=== PATIENT | male | born 1945 | race Caucasian/White ===

== ENCOUNTER 2016-11-26 09:04 | Outpatient (CLI) | payer MEDICARE, OTHER | END 2016-11-26 09:05 | disposition home or self-care (01) | DX: J44.9 Chronic obstructive pulmonary disease, unspecified (principal); J84.10 Pulmonary fibrosis, unspecified ==

== ENCOUNTER 2016-11-28 13:10 | Outpatient (CLI) | payer MEDICARE, OTHER ==
[2016-11-28] MEDS ORDERED: ALBUTEROL NEB 2.5 MG/3 ML INH ONE (13:24)
== END 2016-11-28 13:11 | disposition home or self-care (01) ==
LOC: RT 13:10
PROVIDERS: ATTEND Internal Medicine
DX: J44.9 Chronic obstructive pulmonary disease, unspecified (principal)
CPT/HCPCS: 94060; J7613

== ENCOUNTER 2018-02-27 19:15 | Emergency (ER) | payer MEDICARE, OTHER ==
--- NOTE | 2018-02-27 21:57 | CT Report ---
Procedure Date: 02/27/2018 Accession Number: [id number] / [id number] Procedure: CT - Head W/O CPT Code: FULL RESULT: EXAM: CT HEAD EXAM DATE: 02/27/2018 09:28 PM. CLINICAL HISTORY: Hx of stroke, headache, nausea and balance issues. COMPARISON: CT angiogram head 04/17/2016. TECHNIQUE: Multiaxial CT images were obtained from the foramen magnum to the vertex. Reformats: Sagittal and coronal. IV contrast: None. In accordance with CT protocol optimization, one or more of the following dose reduction techniques were utilized for this exam: automated exposure control, adjustment of mA and/or KV based on patient size, or use of iterative reconstructive technique. FINDINGS: Parenchyma: Large area of chronic cortical and subcortical encephalomalacia involving the majority of the right temporal lobe and a moderate portion of the inferolateral right parietal lobe. Small area of cortical encephalomalacia inferomedially in the right occipital lobe, as before. Patchy hypodensity in left greater than right periventricular white matter consistent with chronic small vessel ischemic change, as before. No new low or high density regions. No intra-axial mass effect. Robb-white differentiation otherwise is intact. Extraaxial Spaces: Normal for age. No subdural or epidural collections identified. Ventricles: Normal in size and position. Sinuses and Orbits: Imaged paranasal sinuses, orbits, and mastoids show no significant abnormality. Bones: No evidence of fracture or calvarial defect. Other: Mild calcification in bilateral cavernous internal carotid arteries and proximal intracranial bilateral vertebral arteries. IMPRESSION: 1. No intracranial hemorrhage or current CT evidence of acute CVA. 2. Right temporoparietal chronic infarct. Small chronic infarct inferior medial right occipital lobe. Left greater than right chronic small vessel ischemic change in the cerebral white matter. RADIA
--- NOTE | 2018-02-27 22:04 | ED Physician Documentation ---
PD HPI FOCAL NEURO - Stated complaint Stated Complaint: SENT BY DOC - Chief complaint Chief Complaint: Abd Pain - History obtained from History obtained from: Patient, Family - History of Present Illness Timing - onset: Today Timing - details: Gradual onset, Now resolved Severity of deficit: Mild Contributing factors: positive: Anticoagulated Similar symptoms before: Work up / diagnostics, Treatment Recently seen: Admitted - Additional information Additional information: Patient is a 72 year old male with a history of multiple strokes in the past who is presenting to the emergency department for feeling nauseated and off balance. Patient reports that he had a large stroke in 2004 and since then he has had multiple other strokes. Patient recently was discharged from a neighboring hospital and MRI there confirmed at least 5 prior strokes according to his family. Patient reports that he had an echo done and ultrasound of his neck but he did not know the results. patient states that in the past when he was going to have some type of stroke he would feel a little funny. Patient talked to his doctor today who told him to come to the ER for "imaging" Upon initial evaluation in the emergency department patient denies any acute complaints and has no focal neurological deficits. Review of Systems Ten Systems: 10 systems reviewed and negative Constitutional: denies: Fever, Chills Eyes: denies: Loss of vision, Decreased vision Cardiac: denies: Chest pain / pressure, Palpitations GI: reports: Nausea. denies: Abdominal Pain, Vomiting, Constipation, Diarrhea : denies: Dysuria, Frequency Skin: denies: Rash Neurologic: denies: Focal weakness, Numbness, Confused, Altered mental status, Headache, Head injury, LOC Immunocompromised: denies: Immunocompromised PD PAST MEDICAL HISTORY - Past Medical History Past Medical History: Yes Cardiovascular: Hypertension Respiratory: None Neuro: CVA Endocrine/Autoimmune: None GI: None : Frequency HEENT: Chronic hearing loss Psych: None Musculoskeletal: None Derm: None - Past Surgical History Past Surgical History: Yes - Present Medications Home Medications: Ambulatory Orders Medication Instructions Recorded Confirmed Aspirin [Aspirin EC] 325 mg PO DAILY #30 tablet. 04/17/16 Atorvastatin [Lipitor] 80 mg PO QPM #30 tablet 04/17/16 Lisinopril 2.5 mg PO DAILY #30 tablet 04/17/16 - Allergies Allergies/Adverse Reactions: Allergies Allergy/AdvReac Type Severity Reaction Status Date / Time No Known Drug Allergies Allergy Verified 04/16/16 19:30 - Social History Does the pt smoke?: No Smoking Status: Never smoker Does the pt drink ETOH?: No Does the pt have substance abuse?: No - Immunizations Immunizations: TDAP >10years/unknown - POLST Patient has POLST: No PD ED PE NORMAL - Vitals Vital signs reviewed: Yes - General General: Alert and oriented X 3, No acute distress - HEENT HEENT: Atraumatic, PERRL, Moist mucous membranes - Cardiac Cardiac: RRR - Respiratory Respiratory: No respiratory distress - Derm Derm: Normal color - Extremities Extremities: No deformity - Neuro Neuro: Alert and oriented X 3, management department chair 2-12 intact, No motor deficit, No sensory deficit, Normal speech Eye Opening: Spontaneous Motor: Obeys Commands Verbal: Oriented GCS Score: 15 NIHSS - Level of Consciousness Level of consciousness: (0) Alert, Keenly responsive LOC Questions: (0) Answers both Q's correct LOC Commands: (0) Performs both correctly - Gaze Best Gaze: (0) Normal - Visual Visual: (0) No loss - Facial Palsy Facial Palsy: (0) Normal, symmetrical movement - Motor Arms (both separate) Motor Arm (right): (0) No drift Motor Arm (left): (0) No drift - Motor Legs (both separate) Motor Leg (right): (0) No drift Motor Leg (left): (0) No drift - Limb Ataxia Limb Ataxia: (0) Absent - Sensory Sensory: (0) Normal - Best Language Best Language: (0) No aphasia - Dysarthria Dysarthria: (0) Normal - Extinction and Inattention (formally neg Extinction and inattention: (0) No abnormality - Total Score/Results Total Score/Result: 0 Results - Vitals Vitals: Vital Signs - 24 hr 02/27/18 02/27/18 19:27 22:25 Temperature 36.6 C Heart Rate 66 70 Respiratory 12 16 Rate Blood Pressure 171/87 H 145/78 H O2 Saturation 98 97 Oxygen O2 Source Room air - Rads (name of study) ct head Radiology: Final report received (multiple chronic findings but no acute findings), See rad report PD MEDICAL DECISION MAKING - ED course Complexity details: reviewed old records, reviewed results, re-evaluated patient , considered differential, d/w patient, d/w family ED course: Patient was seen and examined at bedside. patient was well appearing but due to his significant history imaging was ordered. when patient returned from imaging the results were reviewed. there were significant abnormalities on his CT but nothing acute. A lengthy discussion was had with the patient and family concerning the findings. ample time was given to them to ask and answer questions. Patient required no further inpatient work up at this time and was stable for discharge with outpatient followup. - Sepsis Event Vital Signs: Vital Signs - 24 hr 02/27/18 02/27/18 19:27 22:25 Temperature 36.6 C Heart Rate 66 70 Respiratory 12 16 Rate Blood Pressure 171/87 H 145/78 H O2 Saturation 98 97 Oxygen O2 Source Room air Departure - Departure Disposition: 01 Home, Self Care Clinical Impression: TIA (transient ischemic attack) Condition: Good Instructions: TIA Follow-Up: Bautista Lainez DO [Primary Care Provider] - Within 3 Days Comments: Your CT today showed no acute changes but multiple chronic changes. Due to the multiple abnormalities you are more likely to have more instances like this in the future. You are on the right therapy at this time, and it is up to your and your doctor to decide if you want to use a different blood thinner. You should avoid any falls, and take precautions so that it does not happen. You may return to the emergency department at any time for new worsening or uncontrollable symptoms. Discharge Date/Time: 02/27/18 22:10
[2018-02-27 22:26] VITALS: BP 145/78
== END 2018-02-27 22:10 | disposition home or self-care (01) ==
LOC: ED 19:15
DX: G45.9 Transient cerebral ischemic attack, unspecified (principal); I10 Essential (primary) hypertension; Z86.73 Personal history of transient ischemic attack (TIA), and cerebral infarction without residual deficits; Z79.82 Long term (current) use of aspirin
CPT/HCPCS: 70450; 99283; 99284

== ENCOUNTER 2018-04-10 13:59 | Emergency (ER) | payer MEDICARE, OTHER ==
--- NOTE | 2018-04-10 15:01 | ED Physician Documentation ---
PD HPI FOCAL NEURO - Stated complaint Stated Complaint: HEART MONITOR/HEADACHE/NAUSEA - Chief complaint Chief Complaint: Neuro - History obtained from History obtained from: Patient, Family - History of Present Illness Timing - onset: How many hours ago (3) Timing - details: Still present Severity of deficit: Mild Weakness: Face, Right Associated symptoms: Headache, Other (Unsteady gait.) Baseline status: positive: A&OX3, ambulatory, indep Similar symptoms before: Diagnosis (History of multiple CVA's and TIA's.) Recently seen: Clinic (Holter monitor was placed two days ago.) - Additional information Additional information: The patient is a 72-year-old male with history of multiple CVAs and TIAs in the past, who presents with sudden onset of left frontoparietal headache that star jennifer suddenly about 3 hours prior to arrival. He felt fatigued and had difficulty with ambulation due to feeling "wobbly." His has noticed right facial droop and slurring of his speech. He denies any weakness or numbness of his extremities. He denies visual disturbance. Because of numerous previous neurologic events, a 30-day residential monitor was placed 2 days ago to evaluate the possibility of intermittent atrial fibrillation. He currently is treated with 1 full aspirin daily. He is also treated for hypertension, with lisinopril 25 mg daily. Review of Systems Constitutional: reports: Fatigue. denies: Fever Eyes: denies: Loss of vision, Decreased vision Ears: denies: Tinnitus/ringing Nose: denies: Congestion Throat: denies: Sore throat Cardiac: denies: Chest pain / pressure, Palpitations Respiratory: denies: Dyspnea, Cough GI: reports: Nausea. denies: Abdominal Pain, Vomiting : denies: Dysuria Skin: denies: Rash Musculoskeletal: denies: Neck pain, Back pain Neurologic: reports: Focal weakness (right face), Headache. denies: Numbness PD PAST MEDICAL HISTORY - Past Medical History Cardiovascular: Hypertension Respiratory: None Neuro: CVA, TIA Endocrine/Autoimmune: None GI: None : Frequency HEENT: Chronic hearing loss Psych: None Musculoskeletal: None Derm: None - Past Surgical History Past Surgical History: Yes - Present Medications Home Medications: Ambulatory Orders Medication Instructions Recorded Confirmed Aspirin [Aspirin EC] 325 mg PO DAILY #30 tablet. 04/17/16 Atorvastatin [Lipitor] 80 mg PO QPM #30 tablet 04/17/16 Lisinopril 2.5 mg PO DAILY #30 tablet 04/17/16 - Allergies Allergies/Adverse Reactions: Allergies Allergy/AdvReac Type Severity Reaction Status Date / Time No Known Drug Allergies Allergy Verified 04/10/18 14:15 - Social History Does the pt smoke?: No Smoking Status: Never smoker Does the pt drink ETOH?: No Does the pt have substance abuse?: No - Immunizations Immunizations: TDAP >10years/unknown - POLST Patient has POLST: No PD ED PE NORMAL - Vitals Vital signs reviewed: Yes (hypertensive) - General General: Alert and oriented X 3, Well developed/nourished - HEENT HEENT: Atraumatic, PERRL, EOMI, Pharynx benign - Neck Neck: Supple, no meningeal sign, No adenopathy, No JVD - Cardiac Cardiac: RRR, No murmur - Respiratory Respiratory: No respiratory distress, Clear bilaterally - Abdomen Abdomen: Soft, Non tender - Back Back: No CVA TTP - Derm Derm: No rash - Extremities Extremities: No edema, No calf tenderness / cord - Neuro Neuro: Alert and oriented X 3, No sensory deficit, Other (Mild right facial droop. No sensory deficit detected. No pronator drift or cerebellar defect detected. There is slight slurring of speech. His states that both the facial droop and the speech slurring is different from usual.) NIHSS - Level of Consciousness Level of consciousness: (0) Alert, Keenly responsive LOC Questions: (0) Answers both Q's correct LOC Commands: (0) Performs both correctly - Gaze Best Gaze: (0) Normal - Visual Visual: (0) No loss - Facial Palsy Facial Palsy: (1) Minor paralysis - Motor Arms (both separate) Motor Arm (right): (0) No drift Motor Arm (left): (0) No drift - Motor Legs (both separate) Motor Leg (right): (0) No drift Motor Leg (left): (0) No drift - Limb Ataxia Limb Ataxia: (0) Absent - Sensory Sensory: (0) Normal - Best Language Best Language: (0) No aphasia - Dysarthria Dysarthria: (0) Normal - Extinction and Inattention (formally neg Extinction and inattention: (0) No abnormality - Total Score/Results Total Score/Result: 1 Results - Vitals Vitals: Vital Signs - 24 hr 04/10/18 04/10/18 04/10/18 14:12 16:46 18:10 Temperature 36.6 C Heart Rate 64 59 L 86 Respiratory 20 18 18 Rate Blood Pressure 170/111 H 154/92 H 151/96 H O2 Saturation 97 12 L 99 Oxygen O2 Source Room air - EKG (time done) 14:34 Rate: Rate (enter#) (60) Rhythm: NSR, LAE [place]: Normal Ischemia: Normal ST segments Compare to prior EKG: Unchanged from prior EKG Computer interpretation: Agree with computer 16:19 Rate: Rate (enter#) (61) Rhythm: NSR, LAE [place]: LAD (borderline) Ischemia: Normal ST segments Compare to prior EKG: Unchanged from prior EKG Computer interpretation: Agree with computer - Labs Labs: Laboratory Tests 04/10/18 04/10/18 04/10/18 15:43 15:43 15:43 WBC 10.0 RBC 4.42 L Hgb 13.7 L Hct 40.0 L MCV 90.6 MCH 31.1 H MCHC 34.3 RDW 14.9 Plt Count 231 MPV 7.8 Neut # (Auto) 8.3 H Lymph # (Auto) 0.9 L [place] # (Auto) 0.7 Eos # (Auto) 0.1 Baso # (Auto) 0.1 Absolute Nucleated RBC 0.00 Nucleated RBC % 0.0 PT 11.4 INR 1.0 APTT 35.5 H Sodium 138 Potassium 4.1 Chloride 101 Carbon Dioxide 32 Anion Gap 5.0 L BUN 31 H Creatinine 1.2 Estimated GFR (MDRD) 59 L Glucose 109 H Calcium 9.1 Total Bilirubin 1.2 H AST 20 ALT 21 Alkaline Phosphatase 71 Total Protein 6.4 L Albumin 3.8 Globulin 2.6 Albumin/Globulin Ratio 1.5 Lipase 34 PD MEDICAL DECISION MAKING - ED course Complexity details: reviewed old records, reviewed results, re-evaluated patient, considered differential, d/w patient, d/w family, d/w insurance healthcare consultant ED course: The patient's presentation is most consistent with CVA, involving right facial weakness and slurred speech. Head CT reveals no change from previous scan. Treatment in the emergency department included administration of Tylenol 650 mg orally, Zofran 4 mg IV, 4 baby aspirin, and normal saline 500 mL IV. He is ou tside the window of opportunity for TPA. I discussed his condition with Dr. Escalante who is on-call for Dr. Case, the patient's neurologist. He advises transfer to [facility] for MRI, since the MRI at [facility] is not currently functioning. I discussed his condition with JUAN DAVID Barnett at [facility], and she accepts the patient in transfer. Transfer forms were completed. - Sepsis Event Vital Signs: Vital Signs - 24 hr 04/10/18 04/10/18 04/10/18 14:12 16:46 18:10 Temperature 36.6 C Heart Rate 64 59 L 86 Respiratory 20 18 18 Rate Blood Pressure 170/111 H 154/92 H 151/96 H O2 Saturation 97 12 L 99 Oxygen O2 Source Room air Departure - Departure Disposition: 02 Transfer Acute Care Hosp Clinical Impression: Cerebrovascular accident (CVA) Qualifiers: CVA mechanism: unspecified Qualified Code(s): I63.9 - Cerebral infarction, unspecified Condition: Stable Discharge Date/Time: 04/10/18 18:11
--- NOTE | 2018-04-10 15:19 | CT Report ---
Reason: right facial droop Procedure Date: 04/10/2018 Accession Number: [id number] / [id number] Procedure: CT - Head W/O Stroke Protocol CPT Code: FULL RESULT: EXAM: CT HEAD WITHOUT CONTRAST EXAM DATE: 04/10/2018 03:09 PM. CLINICAL HISTORY: Right facial droop. Slurred speech. COMPARISON: CT head without 02/27/2018. TECHNIQUE: Multiaxial CT images were obtained from the foramen magnum to the vertex. Reformats: Sagittal and coronal. IV contrast: None. In accordance with CT protocol optimization, one or more of the following dose reduction techniques were utilized for this exam: automated exposure control, adjustment of mA and/or KV based on patient size, or use of iterative reconstructive technique. 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 Stable small old right cerebellar infarcts. Stable small right occipital lobe infarct. Old 1.5 cm infarct anterior left centrum semiovale. No intraparenchymal hemorrhage. No evidence of mass, midline shift, or CT findings of acute infarction. Robb-white differentiation is distinct. Diffuse chronic microangiopathic white matter changes are evident. Extraaxial Spaces: Normal for age. No subdural or epidural collections identified. Ventricles: The ventricles and cortical sulci are enlarged, consistent with age-related tissue loss. Sinuses and orbits: Imaged paranasal sinuses, orbits, and mastoids show no significant abnormality. Bones: No evidence of fracture or calvarial defect. Other: None. IMPRESSION: No acute intracranial abnormality nor bleed. RADIA The above findings were discussed with Robert Wood by Dr. Mercedes Deleon at 15:18 hrs on 04/10/2018.
[2018-04-10] MEDS ORDERED: ACETAMINOPHEN 325 MG TABLET PO STA (15:33)
[2018-04-10] MEDS ORDERED: ASPIRIN CHEW 81 MG TABLET PO STA (15:43)
[2018-04-10 15:48] LABS: BASOPHILS # (AUTO) 0.1 10^3/uL (0.0-0.1); BASOPHILS % (AUTO) 0.6 %; EOSINOPHILS # (AUTO) 0.1 10^3/uL (0.0-0.7); EOSINOPHILS % (AUTO) 0.5 %; HGB - HEMOGLOBIN 13.7 g/dL (14.0-18.0); LYMPHOCYTES # (AUTO) 0.9 10^3/uL (1.5-3.5); LYMPHOCYTES % (AUTO) 9.2 %; MEAN CORPUSCULAR HEMOGLOBIN 31.1 pg (27.0-31.0); MEAN CORPUSCULAR HGB CONC 34.3 g/dL (32.0-36.0); MEAN CORPUSCULAR VOLUME 90.6 fL (80.0-94.0); MEAN PLATELET VOLUME 7.8 fL (7.4-11.4); MONOCYTES # (AUTO) 0.7 10^3/uL (0.0-1.0); MONOCYTES % (AUTO) 6.8 %; NEUTROPHILS # (AUTO) 8.3 10^3/uL (1.5-6.6); NEUTROPHILS % (AUTO) 82.9 %; PLT - PLATELET COUNT 231 10^3/uL (130-450); RED BLOOD COUNT 4.42 10^6/uL (4.70-6.10); RED CELL DISTRIBUTION WIDTH 14.9 % (12.0-15.0)
[2018-04-10 15:54] LABS: PT - PROTHROMBIN TIME 11.4 secs (9.9-12.6)
[2018-04-10 16:00] LABS: ALBUMIN 3.8 g/dL (3.2-5.5); ALBUMIN/GLOBULIN RATIO 1.5 (1.0-2.2); BILIRUBIN,TOTAL 1.2 mg/dL (0.2-1.0); CALCIUM 9.1 mg/dL (8.5-10.3); CREATININE 1.2 mg/dL (0.6-1.2); TOTAL PROTEIN 6.4 g/dL (6.7-8.2)
[2018-04-10] MEDS ORDERED: SODIUM CHLORIDE 0.9% 500 ML IV ONE (16:22)
[2018-04-10 18:11] VITALS: BP 151/96
== END 2018-04-10 18:11 | disposition short-term general hospital (02) ==
LOC: ED 13:59
DX: I63.9 Cerebral infarction, unspecified (principal); R94.31 Abnormal electrocardiogram [ECG] [EKG]; I10 Essential (primary) hypertension; Z86.73 Personal history of transient ischemic attack (TIA), and cerebral infarction without residual deficits
CPT/HCPCS: 36415; 70450; 80053; 83690; 85025; 85610; 85730; 93005; 99284; 99285; A9270

== ENCOUNTER 2018-04-10 18:17 | Outpatient (CLI) | payer MEDICARE, OTHER | END 2018-04-10 18:18 | disposition short-term general hospital (02) | LOC: EMS 18:17 | PROVIDERS: ATTEND Surgery | DX: I63.9 Cerebral infarction, unspecified (principal) | CPT/HCPCS: A0170; A0425; A0426 ==

== ENCOUNTER 2018-04-13 09:39 | Outpatient (CLI) | payer MEDICARE, OTHER | END 2018-04-13 09:40 | disposition critical access hospital (66) | LOC: EMS 09:39 | PROVIDERS: ATTEND Surgery | DX: R51 Headache (principal) | CPT/HCPCS: A0425; A0429 ==

== ENCOUNTER 2018-04-13 09:52 | Emergency (ER) | payer MEDICARE, OTHER ==
--- NOTE | 2018-04-13 10:01 | ED Physician Documentation ---
History of Present Illness - Stated complaint Stated Complaint: OSPINA - Additonal information Additional information: hx from pt 72 male hx many many strokes he does no know cause of strokes seen Friday for severe l frontal OSPINA and neuro sx transferred to [facility] had MRI dced pt states no echo states he was started on a blood thinner and has an event monitor and was told to hold his lisinopril for a week today he again developed a severe L frontal OSPINA and his L eyelid is drooping and he feels he is going to have another stroke no injury no fever cough VD is nauseated Review of Systems Constitutional: denies: Fever, Chills Eyes: denies: Photophobia Cardiac: denies: Chest pain / pressure GI: denies: Abdominal Pain Musculoskeletal: denies: Neck pain, Back pain Neurologic: reports: Focal weakness (L eye), Headache. denies: Numbness, Difficulty speaking, Head injury Endocrine: reports: Easy bruising / bleeding Immunocompromised: denies: Immunocompromised PD PAST MEDICAL HISTORY - Past Medical History Cardiovascular: Hypertension Respiratory: None Neuro: CVA, TIA Endocrine/Autoimmune: None GI: None : Frequency HEENT: Chronic hearing loss Psych: None Musculoskeletal: None Derm: None - Past Surgical History Past Surgical History: Yes - Present Medications Home Medications: Ambulatory Orders Medication Instructions Recorded Confirmed Aspirin [Aspirin EC] 325 mg PO DAILY #30 tablet. 04/17/16 Atorvastatin [Lipitor] 80 mg PO QPM #30 tablet 04/17/16 Lisinopril 2.5 mg PO DAILY #30 tablet 04/17/16 Clopidogrel [Plavix] 75 mg PO ONCE 04/13/18 04/13/18 - Allergies Allergies/Adverse Reactions: Allergies Allergy/AdvReac Type Severity Reaction Status Date / Time No Known Drug Allergies Allergy Verified 04/13/18 10:03 - Social History Does the pt smoke?: No Smoking Status: Never smoker Does the pt drink ETOH?: No Does the pt have substance abuse?: No - Immunizations Immunizations: TDAP >10years/unknown - POLST Patient has POLST: No PD ED PE NORMAL - Vitals Vital signs reviewed: Yes - HEENT HEENT: PERRL, EOMI, Other (L upper lid droop, rest of face symm) - Neck Neck: Supple, no meningeal sign - Cardiac Cardiac: RRR - Respiratory Respiratory: No respiratory distress - Abdomen Abdomen: Soft, Non tender - Derm Derm: Normal color - Neuro Neuro: Alert and oriented X 3, No sensory deficit, Normal speech. No: water technician 2-12 intact (slight L upper lid droop), No motor deficit (slight L upper lid droop) Eye Opening: Spontaneous Motor: Obeys Commands Verbal: Oriented GCS Score: 15 Results - Vitals Vitals: Vital Signs - 24 hr 04/13/18 04/13/18 04/13/18 09:54 10:05 11:37 Temperature 36.2 C L Heart Rate 72 75 79 Respiratory 19 16 Rate Blood Pressure 194/109 H 171/94 H 179/92 H O2 Saturation 99 98 98 04/13/18 04/13/18 04/13/18 11:44 11:58 13:55 Temperature Heart Rate 63 67 59 L Respiratory 16 14 17 Rate Blood Pressure 169/88 H 178/102 H 158/91 H O2 Saturation 96 98 96 Oxygen O2 Source Room air - EKG (time done) 1000 Rate: Rate (enter#) Rhythm: NSR [place]: Normal Intervals: Normal IN QRS: Normal Ischemia: Normal ST segments - Labs Labs: Laboratory Tests 04/13/18 04/13/18 04/13/18 10:48 10:48 10:48 WBC 7.3 RBC 4.83 Hgb 14.9 Hct 44.3 MCV 91.8 MCH 30.9 MCHC 33.7 RDW 14.9 Plt Count 233 MPV 8.3 Neut # (Auto) 5.4 Lymph # (Auto) 1.0 L [place] # (Auto) 0.6 Eos # (Auto) 0.2 Baso # (Auto) 0.1 Absolute Nucleated RBC 0.00 Nucleated RBC % 0.0 PT 10.9 INR 1.0 Sodium 139 Potassium 4.0 Chloride 103 Carbon Dioxide 28 Anion Gap 8.0 BUN 21 H Creatinine 1.0 Estimated GFR (MDRD) 73 L Glucose 130 H Calcium 8.9 - Rads (name of study) CTH Radiology: See rad report (no acute mass shift bleed infarct, prior infarcys) PD MEDICAL DECISION MAKING - ED course ED course: pt is not a TPA candidate - has hnumerous recent CVAs so those subacute events would be at risk for hemorrhage records from Prov 04/10-04/11 MRI showed two small areas of acute infarct posterior R temporal lobe and also possible two punctate infarcts L cerebellum, no bleed, old encephalomalcia 2/2 prior infarcts Prov notes state pt also had similar event and seen at [facility] neuro Dr Case 03/17, had ECTA monitor to watch for a fib, nl MASHA 02/14/18 (no PFO or thrombu,s) notes indicate it is 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 and lisinopril, was held as low BP might exacerbate sx [facility] info was given to and she was to call to schedule at [facility] within 2 weeks - but appt is for mid Nov he is presently on asa plavix lisinopril and statin gave lopressor for extreme HTN and neuro deficits thinking perhaps hypertensive crisis but Prov notes rec permissive HTN as hypotension may exacerbate embolic symptoms - so no further doses given called [facility] neuro at noon - neuro req all imaged from [facility] and Prov be pushed for him to review and then hge will call back - pt may need transfer neuro Dr Marco A Odom called back - given pt at very high risk for more strokes he agres waiting till Nov for outpt wup is not advised and he rec transfer to [facility] for further work up such as perfusion imaging pt remained stable in ED - L eyelid still drooping but no new deificits, OSPINA better, NSR throughout pt and family updated pt tried to eat a snack but could not swallow and started coughing - I went to check him - lungs clear, breathing well now, no more food until swallow study - order maintenance fluids - Sepsis Event Vital Signs: Vital Signs - 24 hr 04/13/18 04/13/18 04/13/18 09:54 10:05 11:37 Temperature 36.2 C L Heart Rate 72 75 79 Respiratory 19 16 Rate Blood Pressure 194/109 H 171/94 H 179/92 H O2 Saturation 99 98 98 04/13/18 04/13/18 04/13/18 11:44 11:58 13:55 Temperature Heart Rate 63 67 59 L Respiratory 16 14 17 Rate Blood Pressure 169/88 H 178/102 H 158/91 H O2 Saturation 96 98 96 Oxygen O2 Source Room air Departure - Departure Disposition: 02 Transfer Acute Care Hosp Clinical Impression: Cerebrovascular accident (CVA) Qualifiers: CVA mechanism: unspecified Qualified Code(s): I63.9 - Cerebral infarction, unspecified Condition: Fair NIHSS - Time Time: 09:55 - Level of Consciousness Level of consciousness: (0) Alert, Keenly responsive LOC Questions: (0) Answers both Q's correct LOC Commands: (0) Performs both correctly - Gaze Best Gaze: (0) Normal - Visual Visual: (0) No loss - Facial Palsy Facial Palsy: (1) Minor paralysis - Motor Arms (both separate) Motor Arm (right): (0) No drift Motor Arm (left): (0) No drift - Motor Legs (both separate) Motor Leg (right): (0) No drift Motor Leg (left): (0) No drift - Limb Ataxia Limb Ataxia: (0) Absent - Sensory Sensory: (0) Normal - Best Language Best Language: (0) No aphasia - Dysarthria Dysarthria: (0) Normal - Extinction and Inattention (formally neg Extinction and inattention: (0) No abnormality - Total Score/Results Total Score/Result: 1
--- NOTE | 2018-04-13 10:31 | CT Report ---
Reason: severe L OSPINA, new blood thinner, droop L eyelid Procedure Date: 04/13/2018 Accession Number: [id number] / [id number] Procedure: CT - Head W/O Stroke Protocol CPT Code: FULL RESULT: EXAM: CT HEAD EXAM DATE: 04/13/2018 10:19 AM. CLINICAL HISTORY: Severe L OSPINA, new blood thinner, droop L eyelid. COMPARISON: None. TECHNIQUE: Multiaxial CT images were obtained from the foramen magnum to the vertex. Reformats: Sagittal and coronal. IV contrast: None. In accordance with CT protocol optimization, one or more of the following dose reduction techniques were utilized for this exam: automated exposure control, adjustment of mA and/or KV based on patient size, or use of iterative reconstructive technique. FINDINGS: Parenchyma: No evidence of an acute parenchymal hemorrhage. Changes from prior right parietal and right temporal lobe infarcts as well as right occipital lobe and left frontal lobe/centrum semiovale infarcts are again seen. Overall appearance is similar. No evidence of an acute vascular insult. No midline shift. Extraaxial Spaces: Mildly prominent. No subdural or epidural collections identified. Ventricles: Normal in size and position. Sinuses and Orbits: Imaged paranasal sinuses, orbits, and mastoids show no significant abnormality. Bones: No evidence of fracture or calvarial defect. Other: Globes and orbits are unremarkable. Vascular calcifications are noted. IMPRESSION: 1. No acute intracranial abnormality is identified. 2. Multifocal prior parenchymal infarcts, stable. Critical result: Findings discussed with Dr. Mendez at 10:30 AM on 04/13/2018. RADIA
[2018-04-13 10:58] LABS: BASOPHILS # (AUTO) 0.1 10^3/uL (0.0-0.1); BASOPHILS % (AUTO) 1.4 %; EOSINOPHILS # (AUTO) 0.2 10^3/uL (0.0-0.7); EOSINOPHILS % (AUTO) 2.1 %; HGB - HEMOGLOBIN 14.9 g/dL (14.0-18.0); LYMPHOCYTES % (AUTO) 14.2 %; MEAN CORPUSCULAR HEMOGLOBIN 30.9 pg (27.0-31.0); MEAN CORPUSCULAR HGB CONC 33.7 g/dL (32.0-36.0); MEAN CORPUSCULAR VOLUME 91.8 fL (80.0-94.0); MEAN PLATELET VOLUME 8.3 fL (7.4-11.4); MONOCYTES # (AUTO) 0.6 10^3/uL (0.0-1.0); MONOCYTES % (AUTO) 8.6 %; NEUTROPHILS # (AUTO) 5.4 10^3/uL (1.5-6.6); NEUTROPHILS % (AUTO) 73.7 %; PLT - PLATELET COUNT 233 10^3/uL (130-450); RED BLOOD COUNT 4.83 10^6/uL (4.70-6.10); RED CELL DISTRIBUTION WIDTH 14.9 % (12.0-15.0); WHITE BLOOD COUNT 7.3 x10^3/uL (4.8-10.8)
[2018-04-13 11:06] LABS: PT - PROTHROMBIN TIME 10.9 secs (9.9-12.6)
[2018-04-13] MEDS ORDERED: ACETAMINOPHEN 1,000 MG/100 ML 100 ML IV STA (11:15)
[2018-04-13] MEDS ORDERED: METOPROLOL 5 MG/5 ML VIAL IVP STA (11:15)
[2018-04-13 11:34] LABS: CALCIUM 8.9 mg/dL (8.5-10.3)
[2018-04-13] MEDS ORDERED: D5.45NS W/20 MEQ KCL 1,000 ML IV STA (18:48)
[2018-04-13 19:09] VITALS: BP 152/98
== END 2018-04-13 19:00 | disposition short-term general hospital (02) ==
LOC: EDUNIT# → ED 09:52
DX: I63.9 Cerebral infarction, unspecified (principal); I10 Essential (primary) hypertension; Z79.82 Long term (current) use of aspirin; Z79.01 Long term (current) use of anticoagulants; Z86.73 Personal history of transient ischemic attack (TIA), and cerebral infarction without residual deficits
CPT/HCPCS: 36415; 70450; 80048; 85025; 85610; 93005; 96365; 96367; 96375; 99284; 99285; J0131

== ENCOUNTER 2018-07-23 08:33 | Emergency (ER) | payer MEDICARE, OTHER ==
[2018-07-23] MEDS ORDERED: ACETAMINOPHEN 325 MG TABLET PO STA (09:22)
--- NOTE | 2018-07-23 09:25 | ED Physician Documentation ---
History of Present Illness - Stated complaint Stated Complaint: GLF - Chief complaint Chief Complaint: Trauma Ext - Additonal information Additional information: hx from pt 72 male slipped on bales on drivel and fell on L side due to prior strokes he has poor memory so he cannot recall if he hit his head his neck is sore and primarily he has L wrist and knee pain states otherwise well - recent cough now better no fever NVD, no CP no AP no hip pain on plavix Review of Systems Constitutional: denies: Fever Cardiac: denies: Chest pain / pressure Respiratory: denies: Dyspnea GI: denies: Abdominal Pain Musculoskeletal: reports: Neck pain, Joint pain (L wrist and knee) Neurologic: reports: Head injury (unknown) Endocrine: reports: Easy bruising / bleeding (plavix) Immunocompromised: denies: Immunocompromised PD PAST MEDICAL HISTORY - Past Medical History Cardiovascular: Hypertension Respiratory: None Neuro: CVA, TIA Endocrine/Autoimmune: None GI: None : Frequency HEENT: Chronic hearing loss Psych: None Musculoskeletal: None Derm: None - Past Surgical History Past Surgical History: Yes General: Other - Present Medications Home Medications: Ambulatory Orders Medication Instructions Recorded Confirmed Atorvastatin [Lipitor] 80 mg PO QPM #30 tablet 04/17/16 07/23/18 Clopidogrel [Plavix] 75 mg PO ONCE 04/13/18 07/23/18 Aspirin [Aspirin EC] 81 mg PO DAILY 07/23/18 07/23/18 Lisinopril 10 mg PO DAILY 07/23/18 07/23/18 Lisinopril/Hydrochlorothiazide 1 tab PO DAILY 07/23/18 07/23/18 [Lisinopril-Hctz 10-12.5 mg Tab] - Allergies Allergies/Adverse Reactions: Allergies Allergy/AdvReac Type Severity Reaction Status Date / Time No Known Drug Allergies Allergy Verified 07/23/18 08:51 - Social History Does the pt smoke?: No Smoking Status: Never smoker Does the pt drink ETOH?: No Does the pt have substance abuse?: No - Immunizations Immunizations are current?: No Immunizations: TDAP >10years/unknown - POLST Patient has POLST: No PD ED PE NORMAL - Vitals Vital signs reviewed: Yes - General General: Alert and oriented X 3, Other (poor short term memory, cannot recall the fall well) - HEENT HEENT: Atraumatic, PERRL, Ears normal (no post auricular hematoma, lesion to top of right ear and pt advised to see dermatology as it could be cancerous) - Neck Neck: Other (mid non focal TTP) - Cardiac Cardiac: RRR - Respiratory Respiratory: No respiratory distress, Clear bilaterally - Abdomen Abdomen: Soft, Non tender - Extremities Extremities: Other (no hip pain / TTP. L wrist TTP dorsal aspect, mild swelling no gross feformity, full ROM with mild pain, MSV intact. L knee TTP along medial jt line and proximal patella, no effusion, no ACL MCL laxity, MSV intact) - Neuro Neuro: Alert and oriented X 3 Eye Opening: Spontaneous Motor: Obeys Commands Verbal: Oriented GCS Score: 15 Results - Vitals Vitals: Vital Signs - 24 hr 07/23/18 07/23/18 08:42 10:11 Temperature 36.9 C 36.8 C Heart Rate 91 60 Respiratory 20 18 Rate Blood Pressure 140/89 H 114/75 O2 Saturation 100 96 Oxygen O2 Source Room air - Rads (name of study) wrist Radiology: See rad report (probable distal radius impaction fx) CTH Radiology: See rad report (neg) CTCS Radiology: See rad report (neg) knee Radiology: See rad report (small jt effusion and degen changes no fx) Procedures - Splint (location) L volar wrist Splint applied by: Tech Type of splint: Fiberglass, Short arm, Volar cock up Other: Patient tolerated well, No complications, Neurovascular intact Departure - Departure Disposition: 01 Home, Self Care Clinical Impression: Fall from slip, trip, or stumble Qualifiers: Encounter type: initial encounter Qualified Code(s): W01.0XXA - Fall on same level from slipping, tripping and stumbling without subsequent striking against object, initial encounter Wrist fracture, left Qualifiers: Encounter type: initial encounter Fracture type: closed Qualified Code(s): S62.102A - Fracture of unspecified carpal bone, left wrist, initial encounter for closed fracture Sprain, knee Qualifiers: Encounter type: initial encounter Involved ligament of knee: unspecified ligament Laterality: left Qualified Code(s): S83.92XA - Sprain of unspecified site of left knee, initial encounter Condition: Good Instructions: ED Sprain Knee, ED Splint Care Fiberglass, ED Fx Wrist General Follow-Up: Cl Hinton MD [Primary Care Provider] - [facility] [Provider Group] Comments: The scans of your head and neck were fine. The wrist xray shows an impaction injury to the very end of the radius bone - wear the splint, apply ice for 20 min at a time, elevate as often as possible, take tylenol for pain, and follow up with orthopedics (you need to call to schedule) The knee xrays do not show any broken bones so the pain is likely due to a sprain - recommend tylenol for the pain, wear the KORI wrap rest, ice for 20 minutes at a time, if not better have orthopedics look at it when you go in for your wrist
[2018-07-23 10:14] VITALS: BP 114/75
--- NOTE | 2018-07-23 10:23 | CT Report ---
Reason: fall neck pain Procedure Date: 07/23/2018 Accession Number: [id number] / [id number] Procedure: CT - Cervical Spine W/O CPT Code: FULL RESULT: EXAM: CT HEAD. CT SCAN OF THE CERVICAL SPINE. EXAM DATE: 07/23/2018 09:36 AM. CLINICAL HISTORY: Fall. Plavix. Possible head injury (he cannot remember). COMPARISON: HEAD W/O STROKE PROTOCOL 04/13/2018 10:13 AM CERVICAL SPINE W/O 07/23/2018 9:22 AM. TECHNIQUE: Noncontrast axial sections through the head and cervical spine. Reformats: Sagittal and coronal of the head, coronal and sagittal of the cervical spine. In accordance with CT protocol optimization, one or more of the following dose reduction techniques were utilized for this exam: automated exposure control, adjustment of mA and/or KV based on patient size, or use of iterative reconstructive technique. FINDINGS CT HEAD: Parenchyma: No intraparenchymal hemorrhage. No evidence of mass, midline shift. Stable encephalomalacia in the right temporal lobe distribution. Robb-white differentiation is distinct. Extraaxial Spaces: Normal for age. No subdural or epidural collections identified. Ventricles: Normal in size and position. Sinuses and orbits: Imaged paranasal sinuses, orbits, and mastoids show no significant abnormality. Bones: No evidence of fracture or calvarial defect. Other: Mild frontal soft tissue thickening in the region of the nasal bridge. FINDINGS CT CERVICAL SPINE: Motion predominantly at the skull base and atlantooccipital articulation mildly limits evaluation there with no suspicious findings identified. Alignment: Normal. No scoliosis or spondylolisthesis. Bones: No fracture or bone lesion. Interspace Levels/Facets: Mild multilevel degenerative changes including loss of disk space height mostly at C5-C6 with marginal osteophytosis. Spinal Canal: Normal. Musculature: Normal. No fatty atrophy. Other: The paravertebral and prevertebral soft tissues are unremarkable. The lung apices are clear. IMPRESSION: Head CT: Negative for acute intracranial abnormality. Stable encephalomalacia. Cervical Spine CT: Negative. RADIA
--- NOTE | 2018-07-23 10:23 | CT Report ---
Reason: fall plavix possible head injury(he cant remember) Procedure Date: 07/23/2018 Accession Number: [id number] / [id number] Procedure: CT - Head W/O CPT Code: FULL RESULT: EXAM: CT HEAD. CT SCAN OF THE CERVICAL SPINE. EXAM DATE: 07/23/2018 09:36 AM. CLINICAL HISTORY: Fall. Plavix. Possible head injury (he cannot remember). COMPARISON: HEAD W/O STROKE PROTOCOL 04/13/2018 10:13 AM CERVICAL SPINE W/O 07/23/2018 9:22 AM. TECHNIQUE: Noncontrast axial sections through the head and cervical spine. Reformats: Sagittal and coronal of the head, coronal and sagittal of the cervical spine. In accordance with CT protocol optimization, one or more of the following dose reduction techniques were utilized for this exam: automated exposure control, adjustment of mA and/or KV based on patient size, or use of iterative reconstructive technique. FINDINGS CT HEAD: Parenchyma: No intraparenchymal hemorrhage. No evidence of mass, midline shift. Stable encephalomalacia in the right temporal lobe distribution. Robb-white differentiation is distinct. Extraaxial Spaces: Normal for age. No subdural or epidural collections identified. Ventricles: Normal in size and position. Sinuses and orbits: Imaged paranasal sinuses, orbits, and mastoids show no significant abnormality. Bones: No evidence of fracture or calvarial defect. Other: Mild frontal soft tissue thickening in the region of the nasal bridge. FINDINGS CT CERVICAL SPINE: Motion predominantly at the skull base and atlantooccipital articulation mildly limits evaluation there with no suspicious findings identified. Alignment: Normal. No scoliosis or spondylolisthesis. Bones: No fracture or bone lesion. Interspace Levels/Facets: Mild multilevel degenerative changes including loss of disk space height mostly at C5-C6 with marginal osteophytosis. Spinal Canal: Normal. Musculature: Normal. No fatty atrophy. Other: The paravertebral and prevertebral soft tissues are unremarkable. The lung apices are clear. IMPRESSION: Head CT: Negative for acute intracranial abnormality. Stable encephalomalacia. Cervical Spine CT: Negative. RADIA
--- NOTE | 2018-07-23 10:40 | XRAY Report ---
Reason: fall Procedure Date: 07/23/2018 Accession Number: [id number] / [id number] Procedure: XR - Wrist 4 View LT CPT Code: FULL RESULT: EXAM: LEFT WRIST RADIOGRAPHY EXAM DATE: 07/23/2018 10:00 AM. CLINICAL HISTORY: Fall. COMPARISON: None. TECHNIQUE: 4 views. FINDINGS: Bones: There is subtle 1 mm step-off of the articular surface of the medial radius suggestive of impaction fracture. Ulnar negative deviation with appearance of the distal ulna suggestive of additional possibly remote trauma. Joints: Normal. No subluxations. Soft Tissues: Normal. No soft tissue swelling. IMPRESSION: Radial articular surface step-off, suggestive of impaction fracture. RADIA CRITICAL RESULT: The findings were discussed with Dr. Mendez on 07/23/2018 at 10:40 AM.
--- NOTE | 2018-07-23 10:43 | XRAY Report ---
Reason: fall Procedure Date: 07/23/2018 Accession Number: [id number] / [id number] Procedure: XR - Knee 4 View LT CPT Code: FULL RESULT: EXAM: LEFT KNEE RADIOGRAPHY EXAM DATE: 07/23/2018 10:00 AM. CLINICAL HISTORY: Fall. COMPARISON: None. TECHNIQUE: 3 views. FINDINGS: Bones: No fractures detected. Joints: Degenerative changes mostly in the medial weightbearing compartment. Small joint effusion. No subluxation. Soft Tissues: Vascular calcifications. IMPRESSION: Small joint effusion and degenerative changes. RADIA
== END 2018-07-23 12:16 | disposition home or self-care (01) ==
LOC: ED 08:33
DX: S62.102A Fracture of unspecified carpal bone, left wrist, initial encounter for closed fracture (principal); S83.92XA Sprain of unspecified site of left knee, initial encounter; W01.0XXA Fall on same level from slipping, tripping and stumbling without subsequent striking against object, initial encounter; Z86.73 Personal history of transient ischemic attack (TIA), and cerebral infarction without residual deficits; I10 Essential (primary) hypertension; Z79.82 Long term (current) use of aspirin
CPT/HCPCS: 29125; 70450; 72125; 73110; 73564; 99283; A9270

== ENCOUNTER 2018-09-09 20:05 | Emergency (ER) | payer MEDICARE, OTHER ==
--- NOTE | 2018-09-09 20:13 | ED Physician Documentation ---
PD HPI ABD PAIN - Stated complaint Stated Complaint: ABD PX - Chief complaint Chief Complaint: Abd Pain - History obtained from History obtained from: Patient - History of Present Illness Timing - onset: How many weeks ago (1) Timing - details: Abrupt onset Pain level max: 8 Pain level now: 6 Quality: Pain Location: Epigastric Radiation: Other (no radiation) Improved by: Other (no ameliorating factors (resolved spontaneously)) Worsened by: Other (onset with eating but no exacerbating factors once the pain had started) Associated symptoms: Nausea. No: Fever, Vomiting, Hematemesis, Diarrhea, Constipation, Melena, Hematochezia, Dysuria, Chest pain Similar symptoms before: Has not had sx before Recently seen: Not recently seen - Additional information Additional information: 1 week ago, sudden onset epigastric pain that lasted "fourteen hours" (per patient); he relates the pain temporally to having eaten cooked cotter that had apparently passed its expiration date. Subsequent to the pain resolving, he has had ongoing, waxing and waning burning sensation in epigastric and midline lower chest with dyspnea, fatigue, and sore throat. Review of Systems Constitutional: reports: Fatigue. denies: Fever, Chills, Sweats Throat: reports: Sore throat Cardiac: denies: Chest pain / pressure, Palpitations, Pedal edema Respiratory: reports: Dyspnea. denies: Cough GI: reports: Abdominal Pain, Nausea. denies: Abdominal Swelling, Vomiting, Constipation, Diarrhea, Hematemesis, Bloody / black stool : reports: Frequency. denies: Dysuria Musculoskeletal: denies: Back pain PD PAST MEDICAL HISTORY - Past Medical History Cardiovascular: Hypertension Respiratory: None Neuro: CVA, TIA Endocrine/Autoimmune: None GI: None : Frequency HEENT: Chronic hearing loss Psych: None Musculoskeletal: None Derm: None - Past Surgical History Past Surgical History: Yes General: Other - Present Medications Home Medications: Ambulatory Orders Medication Instructions Recorded Confirmed Atorvastatin [Lipitor] 80 mg PO QPM #30 tablet 04/17/16 07/23/18 Clopidogrel [Plavix] 75 mg PO ONCE 04/13/18 07/23/18 Aspirin [Aspirin EC] 81 mg PO DAILY 07/23/18 07/23/18 Lisinopril 10 mg PO DAILY 07/23/18 07/23/18 Lisinopril/Hydrochlorothiazide 1 tab PO DAILY 07/23/18 07/23/18 [Lisinopril-Hctz 10-12.5 mg Tab] Esomeprazole Magnesium [Nexium] 40 mg PO DAILY #14 capsule. 09/10/18 - Allergies Allergies/Adverse Reactions: Allergies Allergy/AdvReac Type Severity Reaction Status Date / Time No Known Drug Allergies Allergy Verified 09/09/18 20:13 - Social History Does the pt smoke?: No Smoking Status: Never smoker Does the pt drink ETOH?: No Does the pt have substance abuse?: No - Immunizations Immunizations are current?: No Immunizations: TDAP >10years/unknown - POLST Patient has POLST: No PD ED PE NORMAL - Vitals Vital signs reviewed: Yes - General General: Alert and oriented X 3, No acute distress, Well developed/nourished - HEENT HEENT: PERRL, EOMI, Moist mucous membranes - Neck Neck: Supple, no meningeal sign - Cardiac Cardiac: RRR, No murmur, No gallop, No rub - Respiratory Respiratory: No respiratory distress, Clear bilaterally - Abdomen Abdomen: Normal bowel sounds, Soft, Non tender, Non distended - Derm Derm: Normal color, Warm and dry - Extremities Extremities: No edema Results - Vitals Vitals: Vital Signs - 24 hr 09/09/18 09/09/18 09/09/18 20:09 20:19 23:33 Temperature 36.0 C L 36.4 C L Heart Rate 77 82 71 Respiratory 18 18 16 Rate Blood Pressure 166/84 H 161/92 H 131/87 H O2 Saturation 99 98 97 09/10/18 00:30 Temperature 36.7 C Heart Rate 73 Respiratory 14 Rate Blood Pressure 140/85 H O2 Saturation 96 Oxygen O2 Source Room air - EKG (time done) No standard instances Rate: Rate (enter#) (75) Rhythm: NSR, LAE [place]: Normal Intervals: Normal [place] QRS: Normal, Poor R wave progression Ischemia: Normal ST segments - Labs Labs: Laboratory Tests 09/09/18 09/09/18 09/09/18 20:59 20:59 20:59 WBC 6.4 RBC 4.39 L Hgb 14.0 Hct 41.7 L MCV 94.9 H MCH 31.9 H MCHC 33.6 RDW 13.5 Plt Count 254 MPV 8.6 Neut # (Auto) 4.3 Lymph # (Auto) 0.9 L [place] # (Auto) 1.0 Eos # (Auto) 0.1 Baso # (Auto) 0.0 Absolute Nucleated RBC 0.00 Nucleated RBC % 0.0 Sodium 133 L Potassium 3.5 Chloride 97 L Carbon Dioxide 26 Anion Gap 10.0 BUN 21 H Creatinine 0.9 Estimated GFR (MDRD) 82 L Glucose 104 H Calcium 8.7 Total Bilirubin 2.4 H AST 172 H ALT 284 H Alkaline Phosphatase 224 H Troponin I < 0.04 Total Protein 7.3 Albumin 4.0 Globulin 3.3 Albumin/Globulin Ratio 1.2 Lipase 97 H - Rads (name of study) RUQ US Radiology: Prelim report reviewed, See rad report chest xray Radiology: Prelim report reviewed, See rad report PD MEDICAL DECISION MAKING - ED course Complexity details: reviewed results, re-evaluated patient, considered differential, d/w patient ED course: Patient denied any ian pain during ED stay, only had mild burning s/o GERD. He describes significant epigastric pain 1 week ago that lasted approximately 14 hours but has not recurred. He has elevated AST, ALT, alk. phos, and bilirubin, as well as slight elevation in lipase. He is nontender on abdominal exam. I recommended he f/u for reevaluation of his symptoms as well as recheck of his blood tests (even if feeling well), and advised him to consider returning to ED within next 48 hours if he cannot arrange for f/u within 48 hours. Departure - Departure Disposition: 01 Home, Self Care Clinical Impression: Biliary colic Condition: Good Instructions: ED Gallstone W Biliary Colic Follow-Up: Linda Alarcon MD [Primary Care Provider] - Prescriptions: Esomeprazole Magnesium [Nexium] 40 mg PO DAILY #14 capsule. Comments: As we discussed, you have a gallstone on the ultrasound, and this might account for the episode of pain you had last week. More concerning are your abnormal liver function tests. If you were still having abdominal pain with these test results, you would likely need to be admitted to the hospital. However, as your abdominal pain resolved last week, you are being discharged home tonight. You will need to have further testing, including repeat of the blood tests within the next 1 or 2 days. Contact your primary care provider in the morning and try to arrange a follow-up appointment within the next 48 hours. They might be able to order the blood tests in the outpatient setting before seeing you. However, if you cannot be seen or arrange to have repeat blood tests by the end of this week, I recommend that you return to the emergency department for repeat testing, even if you are feeling well. Return to the emergency department at any time if you feel worse in any way. Discharge Date/Time: 09/10/18 00:34
[2018-09-09] MEDS ORDERED: LIDOCAINE VISCOUS 2% 15 ML UDC MM STA (20:29)
[2018-09-09] MEDS ORDERED: MAG HYDROX/AL HYDROX/SIMETH 30 ML UDC PO STA (20:29)
[2018-09-09] MEDS ORDERED: PHENobarb/HYOSCY/ATROPINE/SCOP 5 ML UDC PO STA (20:29)
[2018-09-09 21:18] LABS: BASOPHILS % (AUTO) 0.6 %; EOSINOPHILS # (AUTO) 0.1 10^3/uL (0.0-0.7); LYMPHOCYTES # (AUTO) 0.9 10^3/uL (1.5-3.5); LYMPHOCYTES % (AUTO) 14.5 %; MEAN CORPUSCULAR HEMOGLOBIN 31.9 pg (27.0-31.0); MEAN CORPUSCULAR HGB CONC 33.6 g/dL (32.0-36.0); MEAN CORPUSCULAR VOLUME 94.9 fL (80.0-94.0); MEAN PLATELET VOLUME 8.6 fL (7.4-11.4); MONOCYTES % (AUTO) 15.3 %; NEUTROPHILS # (AUTO) 4.3 10^3/uL (1.5-6.6); NEUTROPHILS % (AUTO) 67.6 %; PLT - PLATELET COUNT 254 10^3/uL (130-450); RED BLOOD COUNT 4.39 10^6/uL (4.70-6.10); RED CELL DISTRIBUTION WIDTH 13.5 % (12.0-15.0); WHITE BLOOD COUNT 6.4 x10^3/uL (4.8-10.8)
--- NOTE | 2018-09-09 21:18 | XRAY Report ---
Reason: chest pain Procedure Date: 09/09/2018 Accession Number: [id number] / [id number] Procedure: XR - Chest 2 View X-Ray CPT Code: 87988 FULL RESULT: EXAM: CHEST RADIOGRAPHY EXAM DATE: 09/09/2018 08:35 PM. CLINICAL HISTORY: Chest pain. COMPARISON: CHEST 2 VIEW PA/LAT 11/26/2016 8:56 AM. TECHNIQUE: 2 views. FINDINGS: Lungs/Pleura: No focal opacities evident. No pleural effusion. No pneumothorax. Normal volumes. Mediastinum: Heart and mediastinal contours are unremarkable. IMPRESSION: No acute cardiopulmonary disease seen. RADIA
[2018-09-09 21:30] LABS: ALBUMIN/GLOBULIN RATIO 1.2 (1.0-2.2); BILIRUBIN,TOTAL 2.4 mg/dL (0.2-1.0); CALCIUM 8.7 mg/dL (8.5-10.3); CREATININE 0.9 mg/dL (0.6-1.2); TOTAL PROTEIN 7.3 g/dL (6.7-8.2)
--- NOTE | 2018-09-09 23:30 | Ultrasound Report ---
Reason: abd. pain Procedure Date: 09/09/2018 Accession Number: [id number] / [id number] Procedure: US - Abdomen Limited CPT Code: FULL RESULT: EXAM: ABDOMEN ULTRASOUND LIMITED, RUQ EXAM DATE: 09/09/2018 10:58 PM. CLINICAL HISTORY: Abdomen pain. COMPARISON: None. TECHNIQUE: Real-time scanning was performed with static images obtained. FINDINGS: Liver: Normal in size and echotexture. 15.4 cm. Main portal vein flow: Hepatopetal. Gallbladder: Several mobile stones. No evidence of acute cholecystitis. Biliary System: CBD measures 7 mm. No intrahepatic or extrahepatic ductal dilatation. Other: No right hydronephrosis. There is a 2.4 cm right renal cyst. The visualized pancreas is unremarkable. IMPRESSION: 1. Cholelithiasis without evidence of acute cholecystitis or bile duct obstruction. RADIA
[2018-09-10 00:31] VITALS: BP 140/85
== END 2018-09-10 00:34 | disposition home or self-care (01) ==
LOC: ED 20:05
DX: K80.50 Calculus of bile duct without cholangitis or cholecystitis without obstruction (principal); I10 Essential (primary) hypertension; Z86.73 Personal history of transient ischemic attack (TIA), and cerebral infarction without residual deficits; Z79.01 Long term (current) use of anticoagulants; Z79.82 Long term (current) use of aspirin
CPT/HCPCS: 36415; 71046; 76705; 80053; 83690; 84484; 85025; 93005; 99283

== ENCOUNTER 2018-09-10 21:24 | Emergency (ER) | payer MEDICARE, OTHER ==
--- NOTE | 2018-09-10 21:40 | ED Physician Documentation ---
History of Present Illness - Stated complaint Stated Complaint: SOA/CP/NAUSEA - Chief complaint Chief Complaint: Cardiac - History obtained from History obtained from: Patient - History of Present Illness Timing: How many weeks ago (1) Pain level now: 2 Improved by: patient had good relief with "GI cocktail" (maalox, donnatol, viscous lidocaine) given in ED yesterday Worsened by: no apparent exacerbating factors - Additonal information Additional information: T+R from this ED yesterday. He had severe epigastric and RUQ abdominal pain 1 week ago that lasted 14 hours. Since then, he has had episodic burning discomfort that is in mid/upper chest in the midline to throat. He had abnormal LFTs and gallstone (by US) on yesterday's ED testing but was in NAD; he was discharged but advised to return to the ED or f/u within 1-2 days for recheck. He has an appointment with PMD scheduled for tomorrow morning, but he had another episode of the burning discomfort and his felt uncomfortable with this and urged him to return to ED for reevaluation. Review of Systems Constitutional: denies: Fever, Chills, Sweats Cardiac: reports: Chest pain / pressure (midline burning discomfort). denies: Palpitations, Pedal edema Respiratory: reports: Dyspnea (mild dyspnea during episodes of chest burning). denies: Cough GI: denies: Abdominal Pain (last week but no subsequent abdominal pain), Nausea, Vomiting : denies: Dysuria, Frequency PD PAST MEDICAL HISTORY - Past Medical History Cardiovascular: Hypertension Respiratory: None Neuro: CVA, TIA Endocrine/Autoimmune: None GI: None : Frequency HEENT: Chronic hearing loss Psych: None Musculoskeletal: None Derm: None - Past Surgical History Past Surgical History: Yes General: Other - Present Medications Home Medications: Ambulatory Orders Medication Instructions Recorded Confirmed Atorvastatin [Lipitor] 80 mg PO QPM #30 tablet 04/17/16 07/23/18 Clopidogrel [Plavix] 75 mg PO ONCE 04/13/18 07/23/18 Aspirin [Aspirin EC] 81 mg PO DAILY 07/23/18 07/23/18 Lisinopril 10 mg PO DAILY 07/23/18 07/23/18 Lisinopril/Hydrochlorothiazide 1 tab PO DAILY 07/23/18 07/23/18 [Lisinopril-Hctz 10-12.5 mg Tab] Esomeprazole Magnesium [Nexium] 40 mg PO DAILY #14 capsule. 09/10/18 - Allergies Allergies/Adverse Reactions: Allergies Allergy/AdvReac Type Severity Reaction Status Date / Time No Known Drug Allergies Allergy Verified 09/10/18 21:35 - Social History Does the pt smoke?: No Smoking Status: Never smoker Does the pt drink ETOH?: No Does the pt have substance abuse?: No - Immunizations Immunizations are current?: No Immunizations: TDAP >10years/unknown - POLST Patient has POLST: No PD ED PE NORMAL - Vitals Vital signs reviewed: Yes - General General: Alert and oriented X 3, No acute distress, Well developed/nourished - HEENT HEENT: Moist mucous membranes - Neck Neck: Supple, no meningeal sign - Cardiac Cardiac: RRR, No murmur - Respiratory Respiratory: No respiratory distress, Clear bilaterally - Abdomen Abdomen: Normal bowel sounds, Soft, Non tender, Non distended, No organomegaly - Derm Derm: Normal color, Warm and dry - Extremities Extremities: No edema Results - Vitals Vitals: Vital Signs - 24 hr 09/10/18 09/10/18 21:30 22:50 Temperature 36.3 C L Heart Rate 73 67 Respiratory 16 16 Rate Blood Pressure 147/106 H 121/82 H O2 Saturation 97 98 Oxygen O2 Source Room air - EKG (time done) No standard instances Rate: Rate (enter#) (74) Rhythm: NSR, LAE [place]: Normal Intervals: Normal [place] QRS: Normal Ischemia: Normal ST segments - Labs Labs: Laboratory Tests 09/10/18 09/10/18 09/10/18 21:50 21:50 21:50 WBC 5.8 RBC 4.34 L Hgb 13.6 L Hct 40.6 L MCV 93.5 MCH 31.3 H MCHC 33.5 RDW 14.0 Plt Count 260 MPV 8.4 Neut # (Auto) 3.7 Lymph # (Auto) 1.0 L [place] # (Auto) 0.9 Eos # (Auto) 0.1 Baso # (Auto) 0.0 Absolute Nucleated RBC 0.00 Nucleated RBC % 0.0 Sodium 134 L Potassium 3.7 Chloride 98 L Carbon Dioxide 26 Anion Gap 10.0 BUN 24 H Creatinine 1.1 Estimated GFR (MDRD) 65 L Glucose 115 H Calcium 8.4 L Total Bilirubin 2.0 H Direct Bilirubin 0.5 AST 144 H ALT 232 H Alkaline Phosphatase 243 H Troponin I Total Protein 6.8 Albumin 3.6 Globulin 3.2 Albumin/Globulin Ratio 1.1 Amylase 97 Lipase 83 H 09/10/18 21:50 WBC RBC Hgb Hct MCV MCH MCHC RDW Plt Count MPV Neut # (Auto) Lymph # (Auto) [place] # (Auto) Eos # (Auto) Baso # (Auto) Absolute Nucleated RBC Nucleated RBC % Sodium Potassium Chloride Carbon Dioxide Anion Gap BUN Creatinine Estimated GFR (MDRD) Glucose Calcium Total Bilirubin Direct Bilirubin AST ALT Alkaline Phosphatase Troponin I < 0.04 Total Protein Albumin Globulin Albumin/Globulin Ratio Amylase Lipase PD MEDICAL DECISION MAKING - ED course Complexity details: reviewed results, re-evaluated patient, considered differential, d/w patient, d/w family ED course: Abnormal LFTs and lipase have all improved compared to yesterday's results, and he again reports excellent symptom relief with GI cocktail (maalox, donnatol, lidocaine). He is entirely nontender on abdominal exam. He is comfortable with d/c home and understands that he needs to keep the appointment he has scheduled with his PMD in the morning. Departure - Departure Disposition: Home, Self Care Clinical Impression: Biliary colic, Gastroesophageal reflux disease Condition: Good Instructions: ED GERD, ED Gallstone W Biliary Colic Follow-Up: Linda Alarcon MD [Primary Care Provider] - (Tomorrow as scheduled) Comments: Your abnormal liver function tests remain elevated but they have all improved; this is a very reassuring finding. You might need further testing and thus be sure to keep your appointment with your doctor tomorrow as scheduled. Discharge Date/Time: 09/10/18 22:51
[2018-09-10 21:57] LABS: BASOPHILS % (AUTO) 0.9 %; EOSINOPHILS # (AUTO) 0.1 10^3/uL (0.0-0.7); EOSINOPHILS % (AUTO) 2.6 %; HGB - HEMOGLOBIN 13.6 g/dL (14.0-18.0); LYMPHOCYTES % (AUTO) 17.4 %; MEAN CORPUSCULAR HEMOGLOBIN 31.3 pg (27.0-31.0); MEAN CORPUSCULAR HGB CONC 33.5 g/dL (32.0-36.0); MEAN CORPUSCULAR VOLUME 93.5 fL (80.0-94.0); MEAN PLATELET VOLUME 8.4 fL (7.4-11.4); MONOCYTES # (AUTO) 0.9 10^3/uL (0.0-1.0); MONOCYTES % (AUTO) 16.3 %; NEUTROPHILS # (AUTO) 3.7 10^3/uL (1.5-6.6); NEUTROPHILS % (AUTO) 62.8 %; PLT - PLATELET COUNT 260 10^3/uL (130-450); RED BLOOD COUNT 4.34 10^6/uL (4.70-6.10); WHITE BLOOD COUNT 5.8 x10^3/uL (4.8-10.8)
[2018-09-10] MEDS ORDERED: LIDOCAINE VISCOUS 2% 15 ML UDC MM STA (21:59)
[2018-09-10] MEDS ORDERED: MAG HYDROX/AL HYDROX/SIMETH 30 ML UDC PO STA (21:59)
[2018-09-10] MEDS ORDERED: PHENobarb/HYOSCY/ATROPINE/SCOP 5 ML UDC PO STA (21:59)
[2018-09-10 22:16] LABS: ALBUMIN 3.6 g/dL (3.2-5.5); ALBUMIN/GLOBULIN RATIO 1.1 (1.0-2.2); CALCIUM 8.4 mg/dL (8.5-10.3); CREATININE 1.1 mg/dL (0.6-1.2); TOTAL PROTEIN 6.8 g/dL (6.7-8.2)
[2018-09-10 22:19] LABS: BILIRUBIN,DIRECT 0.5 mg/dL (0.1-0.5)
[2018-09-10 22:52] VITALS: BP 121/82
== END 2018-09-10 22:51 | disposition home or self-care (01) ==
LOC: EEVIPCON 21:24 → ED 21:24
DX: K80.50 Calculus of bile duct without cholangitis or cholecystitis without obstruction (principal); K21.9 Gastro-esophageal reflux disease without esophagitis; R79.89 Other specified abnormal findings of blood chemistry; I10 Essential (primary) hypertension; Z86.73 Personal history of transient ischemic attack (TIA), and cerebral infarction without residual deficits; Z79.82 Long term (current) use of aspirin
CPT/HCPCS: 36415; 71046; 76705; 80053; 82150; 82248; 83690; 84484; 85025; 93005; 99283; 99284; A9270

== ENCOUNTER 2018-09-15 09:11 | Outpatient (CLI) | payer MEDICARE, OTHER ==
[2018-09-15 10:02] LABS: ALBUMIN 3.9 g/dL (3.2-5.5); BILIRUBIN,DIRECT 1.7 mg/dL (0.1-0.5); BILIRUBIN,TOTAL 4.3 mg/dL (0.2-1.0); TOTAL PROTEIN 7.6 g/dL (6.7-8.2)
[2018-09-15 10:12] LABS: BILIRUBIN,URINE NEGATIVE (NEGATIVE); GLUCOSE, URINE (UA) NEGATIVE (NEGATIVE); KETONES,URINE (UA) NEGATIVE (NEGATIVE); LEUKOCYTE ESTERASE, URINE NEGATIVE (NEGATIVE); NITRITE,URINE NEGATIVE (NEGATIVE); OCCULT BLOOD,URINE NEGATIVE (NEGATIVE); PROTEIN,URINE NEGATIVE (NEGATIVE); UROBILINOGEN,URINE 0.2 (NORMAL) E.U./dL (NORMAL)
[2018-09-15 10:14] LABS: CLARITY,URINE CLEAR (CLEAR)
== END 2018-09-15 09:12 | disposition home or self-care (01) ==
LOC: LAB 09:11
PROVIDERS: ATTEND Internal Medicine
DX: R74.8 Abnormal levels of other serum enzymes (principal); R10.9 Unspecified abdominal pain
CPT/HCPCS: 36415; 80076; 81001; 81003; 87086

== ENCOUNTER 2019-02-09 | Emergency (ER) | payer MEDICARE, OTHER | END 2019-02-09 17:27 | disposition home or self-care (01) | DX: R06.00 Dyspnea, unspecified (principal); I10 Essential (primary) hypertension; D86.9 Sarcoidosis, unspecified | CPT/HCPCS: 36415; 70450; 71046; 80053; 83690; 84484; 85025; 85379; 93005; 99281; 99284; J7512 ==

== ENCOUNTER 2019-02-20 17:40 | Emergency (ER) | payer MEDICARE, OTHER ==
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
[2019-02-20 18:12] LABS: BASOPHILS % (AUTO) 0.4 %; EOSINOPHILS # (AUTO) 0.2 10^3/uL (0.0-0.7); EOSINOPHILS % (AUTO) 1.4 %; HGB - HEMOGLOBIN 14.3 g/dL (14.0-18.0); LYMPHOCYTES # (AUTO) 1.8 10^3/uL (1.5-3.5); MEAN CORPUSCULAR HEMOGLOBIN 30.8 pg (27.0-31.0); MEAN CORPUSCULAR HGB CONC 31.8 g/dL (32.0-36.0); MEAN CORPUSCULAR VOLUME 96.8 fL (80.0-94.0); MEAN PLATELET VOLUME 10.5 fL (7.4-11.4); MONOCYTES % (AUTO) 9.4 %; NEUTROPHILS # (AUTO) 7.4 10^3/uL (1.5-6.6); NEUTROPHILS % (AUTO) 70.6 %; PLT - PLATELET COUNT 273 10^3/uL (130-450); RED BLOOD COUNT 4.65 10^6/uL (4.70-6.10); RED CELL DISTRIBUTION WIDTH 13.4 % (12.0-15.0); WHITE BLOOD COUNT 10.4 x10^3/uL (4.8-10.8)
[2019-02-20 18:22] LABS: ALBUMIN 3.8 g/dL (3.2-5.5); ALBUMIN/GLOBULIN RATIO 1.3 (1.0-2.2); CALCIUM 9.1 mg/dL (8.5-10.3); CREATININE 1.4 mg/dL (0.6-1.2); TOTAL PROTEIN 6.8 g/dL (6.7-8.2)
[2019-02-20 18:23] LABS: PT - PROTHROMBIN TIME 11.5 secs (9.9-12.6)
[2019-02-20 18:30] LABS: PARTIAL THROMBOPLASTIN TIME 30.5 secs (24.9-33.3)
[2019-02-20 18:47] VITALS: BP 148/87
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
== END 2019-02-20 19:55 | disposition home or self-care (01) ==
LOC: ED 17:40
DX: S02.2XXA Fracture of nasal bones, initial encounter for closed fracture (principal); S09.90XA Unspecified injury of head, initial encounter; S00.12XA Contusion of left eyelid and periocular area, initial encounter; S00.531A Contusion of lip, initial encounter; S00.81XA Abrasion of other part of head, initial encounter; S00.31XA Abrasion of nose, initial encounter; S60.512A Abrasion of left hand, initial encounter; S60.511A Abrasion of right hand, initial encounter; S40.812A Abrasion of left upper arm, initial encounter; S40.811A Abrasion of right upper arm, initial encounter; V18.0XXA Pedal cycle driver injured in noncollision transport accident in nontraffic accident, initial encounter; Y93.55 Activity, bike riding; I10 Essential (primary) hypertension; Z86.73 Personal history of transient ischemic attack (TIA), and cerebral infarction without residual deficits; Z79.02 Long term (current) use of antithrombotics/antiplatelets; Z79.82 Long term (current) use of aspirin
CPT/HCPCS: 36415; 70450; 70486; 72125; 80053; 83690; 85025; 85610; 85730; 99282; 99284

== ENCOUNTER 2019-03-09 13:19 | Outpatient (CLI) | payer MEDICARE, OTHER ==
[2019-03-09] MEDS ORDERED: ALBUTEROL NEB 2.5 MG/3 ML INH SCH (13:30)
== END 2019-03-09 13:20 | disposition home or self-care (01) ==
LOC: RT 13:19
PROVIDERS: ATTEND Internal Medicine
DX: R06.02 Shortness of breath (principal)
CPT/HCPCS: 94060

== ENCOUNTER 2019-12-24 08:11 | Outpatient (CLI) | payer MEDICARE, OTHER | END 2019-12-24 08:12 | disposition home or self-care (01) | LOC: LAB 08:11 | PROVIDERS: ATTEND Surgery | DX: K40.90 Unilateral inguinal hernia, without obstruction or gangrene, not specified as recurrent (principal); Z11.59 Encounter for screening for other viral diseases | CPT/HCPCS: 81599 ==

== ENCOUNTER 2021-12-12 00:03 | Emergency (ER) | payer MEDICARE, OTHER ==
[2021-12-12 01:16] LABS: BASOPHILS # (AUTO) 0.1 10^3/uL (0.0-0.1); BASOPHILS % (AUTO) 0.8 %; EOSINOPHILS # (AUTO) 0.3 10^3/uL (0.0-0.7); EOSINOPHILS % (AUTO) 3.3 %; HCT - HEMATOCRIT 44.3 % (42.0-52.0); HGB - HEMOGLOBIN 14.5 g/dL (14.0-18.0); LYMPHOCYTES # (AUTO) 1.4 10^3/uL (1.5-3.5); LYMPHOCYTES % (AUTO) 17.6 %; MEAN CORPUSCULAR HEMOGLOBIN 31.8 pg (27.0-31.0); MEAN CORPUSCULAR HGB CONC 32.7 g/dL (32.0-36.0); MEAN CORPUSCULAR VOLUME 97.1 fL (80.0-94.0); MONOCYTES # (AUTO) 0.9 10^3/uL (0.0-1.0); MONOCYTES % (AUTO) 11.5 %; NEUTROPHILS # (AUTO) 5.1 10^3/uL (1.5-6.6); NEUTROPHILS % (AUTO) 66.3 %; PLT - PLATELET COUNT 291 10^3/uL (130-450); RED BLOOD COUNT 4.56 10^6/uL (4.70-6.10); RED CELL DISTRIBUTION WIDTH 12.5 % (12.0-15.0); WHITE BLOOD COUNT 7.7 x10^3/uL (4.8-10.8)
--- NOTE | 2021-12-12 01:20 | XRAY Report ---
PROCEDURE: Chest 1 View X-Ray INDICATIONS: cough TECHNIQUE: One view of the chest was acquired. COMPARISON: 12/27/2019 FINDINGS: Surgical changes and devices: None. Lungs and pleura: No pleural effusions or pneumothorax. Lungs are clear. Mediastinum: Mediastinal contours appear normal. Heart size is normal. Bones and chest wall: No suspicious bony lesions. Overlying soft tissues appear unremarkable. IMPRESSION: 1. No acute cardiopulmonary disease. Reviewed by: Pablito Kumar MD on 12/12/2021 1:19 AM PDT Approved by: Pablito Kumar MD on 12/12/2021 1:19 AM PDT Station ID: [id number]
[2021-12-12 01:29] LABS: ALBUMIN/GLOBULIN RATIO 1.2 (1.0-2.2); BILIRUBIN,TOTAL 1.3 mg/dL (0.2-1.0); CALCIUM 9.1 mg/dL (8.5-10.3); CREATININE 1.4 mg/dL (0.6-1.2); POTASSIUM 3.8 mmol/L (3.5-5.0); TOTAL PROTEIN 7.3 g/dL (6.7-8.2)
[2021-12-12] MEDS: IPRATROPIUM/ALBUTEROL 3 ML NEB INH STA (02:49)
--- NOTE | 2021-12-12 03:14 | ED Physician Documentation ---
PD HPI DYSPNEA - Stated complaint Stated Complaint: SOA - Chief complaint Chief Complaint: Resp - History obtained from History obtained from: Patient - Additional information Additional information: Patient is a 76-year-old male with a history significant for previous strokes And hypertension presenting for evaluation of shortness of breath That he noted this evening. Patient has had a nonproductive cough for the last 4 to 5 days. Denies fever, sore throat, chest pain, abdominal pain. This evening while laying down he felt like he was having trouble taking a deep breath in. He has not taken a COVID test. He does have an inhaler at home but has not used it in a few years. He denies a history of COPD although this is mentioned in his medical record. He reports having breathing issues in the past related to being exposed to something while in the [place].He does not smoke. He is not on home oxygen. He denies recent travel, leg swelling or pain, hemoptysis.Nothing makes his symptoms better or worse. Review of Systems Constitutional: denies: Fever Nose: denies: Congestion Throat: denies: Sore throat Cardiac: denies: Chest pain / pressure, Palpitations Respiratory: reports: Dyspnea, Cough GI: denies: Abdominal Pain, Vomiting : denies: Dysuria Skin: denies: Rash Musculoskeletal: denies: Back pain Neurologic: denies: Headache PD PAST MEDICAL HISTORY - Past Medical History Past Medical History: Yes Cardiovascular: Hypertension, High cholesterol Respiratory: Sleep apnea Neuro: CVA, TIA Endocrine/Autoimmune: Other GI: Cholelithiasis : Benign prostate hypertrophy, Frequency HEENT: Chronic vision loss, Chronic hearing loss Psych: None Musculoskeletal: Osteoarthritis Derm: Other - Past Surgical History Past Surgical History: Yes General: Other - Present Medications Home Medications: Ambulatory Orders Medication Instructions Recorded Confirmed Atorvastatin [Lipitor] 80 mg PO QPM #30 tablet 04/17/16 12/21/19 Clopidogrel [Plavix] 75 mg PO ONCE 04/13/18 12/21/19 Aspirin [Aspirin EC] 81 mg PO DAILY 07/23/18 12/21/19 Lisinopril/Hydrochlorothiazide 1 tab PO DAILY 07/23/18 12/21/19 [Lisinopril-Hctz 10-12.5 mg Tab] Albuterol Sulf [Ventolin Hfa 1 - 2 puffs INH Q4HR PRN #1 inhaler 12/12/21 Inhaler] - Allergies Allergies/Adverse Reactions: Allergies Allergy/AdvReac Type Severity Reaction Status Date / Time No Known Drug Allergies Allergy Verified 12/12/21 00:26 - Social History Does the pt smoke?: No Smoking Status: Never smoker Does the pt drink ETOH?: No Does the pt have substance abuse?: No - Immunizations Immunizations are current?: No Immunizations: TDAP >10years/unknown - POLST Patient has POLST: No PD ED PE NORMAL - General General: Alert and oriented X 3, No acute distress, Well developed/nourished - HEENT HEENT: Atraumatic, Moist mucous membranes, Pharynx benign - Neck Neck: Supple, no meningeal sign - Cardiac Cardiac: RRR, No murmur, Strong equal pulses - Respiratory Respiratory: No respiratory distress, Other (Diminished breath sounds, no wheezing or rales) - Abdomen Abdomen: Normal bowel sounds, Soft, Non tender - Derm Derm: Warm and dry - Extremities Extremities: No edema - Neuro Neuro: Normal speech Results - Vitals Vitals: Vital Signs - 24 hr 12/12/21 12/12/21 12/12/21 00:18 01:02 01:06 Temperature 36.7 C Heart Rate 67 71 Respiratory 17 18 19 Rate Blood Pressure 143/79 H 118/86 H O2 Saturation 98 99 12/12/21 12/12/21 02:50 03:23 Temperature 36.7 C Heart Rate 61 63 Respiratory 12 13 Rate Blood Pressure 120/79 O2 Saturation 99 Oxygen O2 Source Room air - EKG (time done) 0114 Rate: Rate (enter#) (63) Rhythm: NSR Intervals: Normal [place] Ischemia: No: ST elevation c/w ischemia, ST elevation c/w repol - Labs Labs: Laboratory Tests 12/12/21 12/12/21 12/12/21 01:10 01:10 01:10 WBC 7.7 RBC 4.56 L Hgb 14.5 Hct 44.3 MCV 97.1 H MCH 31.8 H MCHC 32.7 RDW 12.5 Plt Count 291 MPV 10.0 Neut # (Auto) 5.1 Lymph # (Auto) 1.4 L [place] # (Auto) 0.9 Eos # (Auto) 0.3 Baso # (Auto) 0.1 Absolute Nucleated RBC 0.00 Nucleated RBC % 0.0 Sodium 137 Potassium 3.8 Chloride 96 L Carbon Dioxide 28 Anion Gap 13.0 BUN 34 H Creatinine 1.4 H Estimated GFR (MDRD) 49 L Glucose 123 H Calcium 9.1 Total Bilirubin 1.3 H AST 25 ALT 23 Alkaline Phosphatase 81 Troponin I High Sens 7.5 B-Natriuretic Peptide Total Protein 7.3 Albumin 4.0 Globulin 3.3 Albumin/Globulin Ratio 1.2 12/12/21 01:10 WBC RBC Hgb Hct MCV MCH MCHC RDW Plt Count MPV Neut # (Auto) Lymph # (Auto) [place] # (Auto) Eos # (Auto) Baso # (Auto) Absolute Nucleated RBC Nucleated RBC % Sodium Potassium Chloride Carbon Dioxide Anion Gap BUN Creatinine Estimated GFR (MDRD) Glucose Calcium Total Bilirubin AST ALT Alkaline Phosphatase Troponin I High Sens B-Natriuretic Peptide 32 Total Protein Albumin Globulin Albumin/Globulin Ratio PD MEDICAL DECISION MAKING - ED course Complexity details: reviewed results, re-evaluated patient, d/w patient ED course: Patient with few day history of nonproductive cough and feeling short of breath this evening. Vital signs are reassuring as is exam. Patient has slightly diminished breath sounds which improved after 1 breathing treatment. Patient also feels that this helped his symptoms. Patient does have an inhaler at home but has not used it in quite some time. EKG is reassuring without signs of acute ischemia and high-sensitivity troponin is negative. She did think his symptoms suggest pulmonary embolism. No signs of pneumonia on chest x-ray. COVID test is pending.At this time I believe his symptoms are mild and do not think he needs steroids or antibiotics for possible COPD flare. Will prescribe patient a new inhaler as his previous one is several years old. Patient was counseled on need for follow-up with his PCP as well as strict return precautions.Patient ambulatory at discharge. Departure - Departure Disposition: 01 Home, Self Care Clinical Impression: Shortness of breath Condition: Stable Instructions: COPD Tx, ED Dyspnea Shortness of Breath Prescriptions: Albuterol Sulf [Ventolin Hfa Inhaler] 1 - 2 puffs INH Q4HR PRN #1 inhaler PRN Reason: Shortness Of Air/Wheezing Comments: Vivek you were evaluated for shortness of breath. Your EKG and labs Did not show any significant abnormalities. Your chest x-ray was clear did not show signs of pneumonia. You did receive a breathing treatment here which did improve your symptoms. Your breathing may be related to a lung disease called COPD which is mentioned in your medical record.I will prescribe a refill of your inhaler and send it to the [facility] pharmacy in [place]. Please pick this up in the morning. Please use this as directed. Please also follow-up with your primary care doctor. At this time I do not think he needs steroids or antibiotics But if your symptoms are worsening please return to the emergency department or follow-up with your primary care doctor. You have a Covid test pending. You need to self quarantine until the result is done and negative. Do not leave your house. Do not get near anybody. The results should be done in 48 to 72 hours. We will call with a positive result, the fastest way to get a negative result for confirmation though is to go to the hospital website at [email or web address], click on the my [facility] tab and sign up for the patient portal. If any friends or family get sick and would like to have a Covid test done, but do not have signs or symptoms that would necessitate being hospitalized, there are multiple local options for Covid testing. [facility] keeps an updated list of testing and vaccination options at: [email or web address]. Discharge Date/Time: 12/12/21 03:39
[2021-12-12 03:24] VITALS: BP 120/79
== END 2021-12-12 03:39 | disposition home or self-care (01) ==
LOC: ED 00:03
DX: R06.09 Other forms of dyspnea (principal); I10 Essential (primary) hypertension
CPT/HCPCS: 36415; 71045; 80053; 83880; 84484; 85025; 93005; 94640; 94664; 99284; U0004

== ENCOUNTER 2022-03-21 21:38 | Emergency (ER) | payer MEDICARE, OTHER ==
--- NOTE | 2022-03-21 22:30 | ED Physician Documentation ---
PD HPI LOWER EXT INJURY - Stated complaint Stated Complaint: RT KNEE PAIN - Chief complaint Chief Complaint: Ext Problem - History obtained from History obtained from: Patient - History of Present Illness PD HPI LOW EXT INJURY LOCATION: Right, Knee - Additional information Additional information: Patient presenting for evaluation of right knee pain that started approximately 1 hour ago. Patient was going up a step from his garage into his house when he felt a pop in his right knee and pain. He denies falling or hitting his head. He reports sharp pain to the knee and denies radiation elsewhere. He denies previous injuries to this knee or prior surgeries to this knee. He does take Plavix for history of strokes.He was able to ambulate with a walker. Review of Systems Constitutional: denies: Fever Nose: denies: Congestion Cardiac: denies: Chest pain / pressure Respiratory: denies: Dyspnea GI: denies: Abdominal Pain Musculoskeletal: reports: Joint pain. denies: Back pain Neurologic: denies: Headache, Head injury PD PAST MEDICAL HISTORY - Past Medical History Cardiovascular: Hypertension, High cholesterol Respiratory: Sleep apnea Neuro: CVA, TIA Endocrine/Autoimmune: Other GI: Cholelithiasis : Benign prostate hypertrophy, Frequency HEENT: Chronic vision loss, Chronic hearing loss Psych: None Musculoskeletal: Osteoarthritis Derm: Other - Past Surgical History Past Surgical History: Yes General: Other - Present Medications Home Medications: Ambulatory Orders Medication Instructions Recorded Confirmed Atorvastatin [Lipitor] 80 mg PO QPM #30 tablet 04/17/16 12/21/19 Clopidogrel [Plavix] 75 mg PO ONCE 04/13/18 12/21/19 Aspirin [Aspirin EC] 81 mg PO DAILY 07/23/18 12/21/19 Lisinopril/Hydrochlorothiazide 1 tab PO DAILY 07/23/18 12/21/19 [Lisinopril-Hctz 10-12.5 mg Tab] Albuterol Sulf [Ventolin Hfa 1 - 2 puffs INH Q4HR PRN #1 inhaler 12/12/21 Inhaler] Lidocaine Patch 5% [Lidoderm Patch] 1 patch TOP DAILY PRN #10 patch 03/22/22 - Allergies Allergies/Adverse Reactions: Allergies Allergy/AdvReac Type Severity Reaction Status Date / Time No Known Drug Allergies Allergy Verified 12/12/21 00:26 - Social History Does the pt smoke?: No Smoking Status: Never smoker Does the pt drink ETOH?: No Does the pt have substance abuse?: No - Immunizations Immunizations are current?: No Immunizations: TDAP >10years/unknown - POLST Patient has POLST: No PD ED PE NORMAL - General General: Alert and oriented X 3, No acute distress, Well developed/nourished - HEENT HEENT: Atraumatic - Neck Neck: No bony TTP - Cardiac Cardiac: RRR, No murmur, Strong equal pulses - Respiratory Respiratory: No respiratory distress - Extremities Extremities: No deformity, No tenderness to palpate, No calf tenderness / cord. No: Normal ROM s pain (No pain with extension, reports mild pain with flexion, distal pulses intact, no tenderness over femur or lower extremity,) - Neuro Neuro: No motor deficit, No sensory deficit Results - Vitals Vitals: Vital Signs - 24 hr 03/21/22 03/22/22 21:42 00:47 Temperature 36.5 C Heart Rate 87 86 Respiratory 18 18 Rate Blood Pressure 166/84 H 134/74 H O2 Saturation 97 98 Oxygen O2 Source Room air PD MEDICAL DECISION MAKING - ED course Complexity details: reviewed results, re-evaluated patient, d/w patient, d/w family ED course: Patient presenting for evaluation of right knee pain. X-rays negative for fracture dislocation. Neurovascularly intact. Patient is able to bear weight on the extremity.James wrap applied and patient has a walker with him. He is advised on need for follow-up with primary care doctor should his symptoms not improve. Departure - Departure Disposition: 01 Home, Self Care Clinical Impression: Right knee injury Qualifiers: Encounter type: initial encounter Qualified Code(s): S89.91XA - Unspecified injury of right lower leg, initial encounter Condition: Stable Instructions: ED Knee Pain UKO Follow-Up: Linda Alarcon MD [Primary Care Provider] - Prescriptions: Lidocaine Patch 5% [Lidoderm Patch] 1 patch TOP DAILY PRN #10 patch PRN Reason: pain Comments: You were evaluated for an injury to your right knee. An x-ray does not show a broken or out of place bone. We have placed an James wrap and I would recommend using your walker. Please also elevate and ice your knee as this may help with your pain. I would also recommend lidocaine patches and have sent a prescription To the [facility] pharmacy in [place]. Please have close follow-up with your primary care doctor if your symptoms or not improving over the next week. Discharge Date/Time: 03/22/22 00:47
--- NOTE | 2022-03-22 00:01 | XRAY Report ---
PROCEDURE: Knee 4 View RT INDICATIONS: knee injury TECHNIQUE: 4 views of the right knee were acquired. COMPARISON: None. FINDINGS: Bones: No fractures or dislocations. Joint spaces appear preserved in the medial and lateral compar tments. There is minimal osteophytosis in the patellofemoral compartment. There is mild to moderate n arrowing in the patellofemoral compartment medially. No suspicious bony lesions. Soft tissues: There is a small to moderate joint effusion. No suspicious soft tissue calcifications . IMPRESSION: 1. No fracture or dislocation. 2. Small to moderate joint effusion. Reviewed by: Pablito Kumar MD on 03/22/2022 12:00 AM PDT Approved by: Pablito Kumar MD on 03/22/2022 12:00 AM PDT Station ID: [id number]
[2022-03-22] MEDS ORDERED: LIDOCAINE PATCH 5% TOP STA (00:18)
[2022-03-22 00:48] VITALS: BP 134/74
== END 2022-03-22 00:47 | disposition home or self-care (01) ==
LOC: ED 21:38
DX: S89.91XA Unspecified injury of right lower leg, initial encounter (principal); X58.XXXA Exposure to other specified factors, initial encounter; Y93.89 Activity, other specified; Y92.008 Other place in unspecified non-institutional (private) residence as the place of occurrence of the external cause
CPT/HCPCS: 73564; 99283; 99284; A9270

== ENCOUNTER 2022-04-17 11:17 | Emergency (ER) | payer MEDICARE, OTHER ==
--- NOTE | 2022-04-17 12:22 | XRAY Report ---
PROCEDURE: Hip w/Pelvis 2-3V LT INDICATIONS: fall, hip injury, note covid pos TECHNIQUE: AP pelvis with lateral view(s) of the left hip(s). COMPARISON: None. FINDINGS: Bones: No fractures or dislocations. Pelvic ring appears intact. No suspicious bony lesions. Soft tissues: The visualized bowel gas pattern is normal. No suspicious soft tissue calcifications. IMPRESSION: No visualized acute fracture or dislocation. However, occult injury cannot be excluded. Recommend short interval imaging follow-up in 7-10 days as clinically indicated for additional evalua tion. Reviewed by: Natalee Campbell MD on 04/17/2022 12:20 PM PDT Approved by: Natalee Campbell MD on 04/17/2022 12:20 PM PDT Station ID: [id number]
[2022-04-17] MEDS ORDERED: HYDROcod/ACETAM 5/325 MG TABLET PO STA (12:28)
[2022-04-17 12:47] LABS: BASOPHILS % (AUTO) 0.5 %; EOSINOPHILS # (AUTO) 0.2 10^3/uL (0.0-0.7); EOSINOPHILS % (AUTO) 2.2 %; LYMPHOCYTES # (AUTO) 1.2 10^3/uL (1.5-3.5); LYMPHOCYTES % (AUTO) 14.5 %; MEAN CORPUSCULAR HEMOGLOBIN 31.2 pg (27.0-31.0); MEAN CORPUSCULAR HGB CONC 33.3 g/dL (32.0-36.0); MEAN CORPUSCULAR VOLUME 93.5 fL (80.0-94.0); MEAN PLATELET VOLUME 9.7 fL (7.4-11.4); MONOCYTES % (AUTO) 12.2 %; NEUTROPHILS # (AUTO) 5.7 10^3/uL (1.5-6.6); NEUTROPHILS % (AUTO) 70.1 %; PLT - PLATELET COUNT 292 10^3/uL (130-450); RED BLOOD COUNT 4.49 10^6/uL (4.70-6.10); RED CELL DISTRIBUTION WIDTH 12.5 % (12.0-15.0); WHITE BLOOD COUNT 8.1 x10^3/uL (4.8-10.8)
[2022-04-17 13:10] LABS: ALBUMIN 3.8 g/dL (3.2-5.5); ALBUMIN/GLOBULIN RATIO 1.1 (1.0-2.2); BILIRUBIN,TOTAL 1.5 mg/dL (0.2-1.0); CALCIUM 8.9 mg/dL (8.5-10.3); CREATININE 1.1 mg/dL (0.6-1.2); POTASSIUM 3.5 mmol/L (3.5-5.0); TOTAL PROTEIN 7.2 g/dL (6.7-8.2)
--- NOTE | 2022-04-17 13:54 | ED Physician Documentation ---
History of Present Illness - Stated complaint Stated Complaint: LT HIP PX/C? - Chief complaint Chief Complaint: Trauma Ext - Additonal information Additional information: Patient is 76-year-old male presenting to the emergency department with chief complaint of left hip pain. Believes that he passed out while loading heavy trash cans onto his truck. This occurred 3 days ago. Woke up on the ground and since that time has had left hip pain. Endorses for history of stroke and takes aspirin and clopidogrel. Review of Systems Ten Systems: 10 systems reviewed and negative Constitutional: denies: Fever Eyes: denies: Loss of vision Ears: denies: Loss of hearing Nose: denies: Rhinorrhea / runny nose Throat: denies: Dental pain / toothache Cardiac: denies: Chest pain / pressure Respiratory: denies: Dyspnea GI: denies: Abdominal Pain : denies: Dysuria Skin: denies: Rash Musculoskeletal: denies: Neck pain PD PAST MEDICAL HISTORY - Past Medical History Past Medical History: Yes Cardiovascular: Hypertension, High cholesterol Respiratory: Sleep apnea Neuro: CVA, TIA Endocrine/Autoimmune: Other GI: Cholelithiasis : Benign prostate hypertrophy, Frequency HEENT: Chronic vision loss, Chronic hearing loss Psych: None Musculoskeletal: Osteoarthritis Derm: Other - Past Surgical History Past Surgical History: Yes General: Other - Present Medications Home Medications: Ambulatory Orders Medication Instructions Recorded Confirmed Atorvastatin [Lipitor] 80 mg PO QPM #30 tablet 04/17/16 04/17/22 Clopidogrel [Plavix] 75 mg PO ONCE 04/13/18 04/17/22 Aspirin [Aspirin EC] 81 mg PO DAILY 07/23/18 04/17/22 Lisinopril/Hydrochlorothiazide 1 tab PO DAILY 07/23/18 04/17/22 [Lisinopril-Hctz 10-12.5 mg Tab] Albuterol Sulf [Ventolin Hfa 1 - 2 puffs INH Q4HR PRN #1 inhaler 12/12/21 04/17/22 Inhaler] - Allergies Allergies/Adverse Reactions: Allergies Allergy/AdvReac Type Severity Reaction Status Date / Time No Known Drug Allergies Allergy Verified 04/17/22 11:28 - Social History Does the pt smoke?: No Smoking Status: Never smoker Does the pt drink ETOH?: No Does the pt have substance abuse?: No - Immunizations Immunizations are current?: No Immunizations: TDAP >10years/unknown - POLST Patient has POLST: No PD ED PE NORMAL - Vitals Vital signs reviewed: Yes - General General: Alert and oriented X 3, No acute distress, Well developed/nourished - HEENT HEENT: Atraumatic, PERRL, EOMI, Ears normal, Pharynx benign - Neck Neck: Supple, no meningeal sign, No bony TTP, No adenopathy - Cardiac Cardiac: RRR, No gallop, Strong equal pulses - Respiratory Respiratory: No respiratory distress, Clear bilaterally - Abdomen Abdomen: Normal bowel sounds, Non tender - Male Male : Deferred - Rectal Rectal: Deferred - Back Back: No CVA TTP - Neuro Neuro: Alert and oriented X 3, website admin 2-12 intact, No motor deficit, No sensory deficit Results - Vitals Vitals: Vital Signs - 24 hr 04/17/22 11:21 Temperature 36.7 C Heart Rate 81 Respiratory 16 Rate Blood Pressure 169/86 H O2 Saturation 99 Oxygen O2 Source Room air - EKG (time done) 1258 Rate: Rate (enter#) (60) Rhythm: Sinus bradycardia, NSR [place]: Normal Intervals: Normal [place] QRS: Normal Ischemia: Normal ST segments Computer interpretation: Agree with computer - Labs Labs: Laboratory Tests 04/17/22 04/17/22 12:41 12:41 WBC 8.1 RBC 4.49 L Hgb 14.0 Hct 42.0 MCV 93.5 MCH 31.2 H MCHC 33.3 RDW 12.5 Plt Count 292 MPV 9.7 Neut # (Auto) 5.7 Lymph # (Auto) 1.2 L [place] # (Auto) 1.0 Eos # (Auto) 0.2 Baso # (Auto) 0.0 Absolute Nucleated RBC 0.00 Nucleated RBC % 0.0 Sodium 137 Potassium 3.5 Chloride 100 L Carbon Dioxide 31 Anion Gap 6.0 BUN 27 H Creatinine 1.1 Estimated GFR (MDRD) 65 L Glucose 115 H Calcium 8.9 Total Bilirubin 1.5 H AST 28 ALT 21 Alkaline Phosphatase 83 Total Protein 7.2 Albumin 3.8 Globulin 3.4 Albumin/Globulin Ratio 1.1 Lipase 41 PD MEDICAL DECISION MAKING - ED course Complexity details: reviewed results, re-evaluated patient, d/w patient ED course: Patient is 76-year-old male presenting to the emergency department with left hip pain. Endorses for a syncopal episode that occurred Friday of this week. Fell onto his left side while loading heavy trash cans onto his truck.Denies head trauma but does take dual antiplatelet therapy and has a history of CVA. Also reports some cough and upper airway congestion and a positive home COVID test. Afebrile, hemodynamically stable on arrival to the emergency department.Clear aeration in all lung robles and no respiratory distress. No focal or lateralizing neurologic deficits. X-ray left hip negative for obvious fracture. EKG, lab work and head CT nonactionable.Will discharge with instructions for follow-up with primary care. Clear return precautions given. Departure - Departure Disposition: Home, Self Care Clinical Impression: Hip injury, Syncope, COVID Comments: Thank you for allowing us to care for you today at [facility]. Today in the emergency department you were evaluated for any possible life- threatening medical emergency. The x-rays of your left hip did not show any acute fracture or abnormality. Your lab work, EKG and head CT were also very reassuring. Your head CT did show findings consistent with your known history of stroke but no new or acute abnormality. I would like you to use your walker at all times while your hip is healing. I would also like you to make a follow- up appointment with your primary care doctor for medical reevaluation in the next few days. If it anytime you have any new or worsening symptoms or if you have another event of syncope please return to the emergency department immediately for further evaluation and treatment.
--- NOTE | 2022-04-17 13:56 | CT Report ---
PROCEDURE: HEAD WO INDICATIONS: Syncope TECHNIQUE: Noncontrast 4.5 mm thick angled axial sections acquired from the foramen magnum to the vertex. For r adiation dose reduction, the following was used: automated exposure control, adjustment of mA and/or kV according to patient size. COMPARISON: CT head 12/27/2019 FINDINGS: Image quality: Excellent. The ventricular system and cortical sulci demonstrate atrophy, consistent for patient's stated age. There are areas of hypodensity in the periventricular and subcortical white matter. Encephalomalacia is present in the right temporal parietal lobe consistent with old ischemia. Focus of old infarction is noted in the left centrum semiovale. There is no acute intra or extra-axial fluid collection. No acute hemorrhage, mass lesion or midline shift. Brainstem is unremarkable. Globes are symmetrical. Sinuses and the straight minimal scattered areas of mucosal thickening.. Osse ous structures are intact. IMPRESSION: Reviewed by: Natalee Campbell MD on 04/17/2022 1:55 PM PDT Approved by: Natalee Campbell MD on 04/17/2022 1:55 PM PDT Station ID: [id number]
[2022-04-17 14:22] VITALS: BP 158/78
== END 2022-04-17 14:22 | disposition home or self-care (01) ==
LOC: ED 11:17
DX: U07.1 COVID-19 (principal); S79.912A Unspecified injury of left hip, initial encounter; X50.0XXA Overexertion from strenuous movement or load, initial encounter; I10 Essential (primary) hypertension; R55 Syncope and collapse
CPT/HCPCS: 36415; 80053; 83690; 85025; 93005; 99283; 99284

== ENCOUNTER 2022-05-02 08:00 | Outpatient (CLI) | payer MEDICARE, OTHER ==
--- NOTE | 2022-05-02 14:24 | XRAY Report ---
PROCEDURE: Knee 3 View RT INDICATIONS: RIGHT KNEE PAIN TECHNIQUE: 3 views of the right knee(s) were acquired. COMPARISON: None. FINDINGS: Bones: No fractures or dislocations. No suspicious bony lesions. Mild joint space narrowing. Small joint effusion present. As described vascular calcification noted. Soft tissues: No joint effusion. No suspicious soft tissue calcifications. IMPRESSION: Mild osteoarthritis and moderate calcific atherosclerosis Reviewed by: Marco Carcamo MD on 05/02/2022 1:22 PM AKNIKITA Approved by: Marco Carcamo MD on 05/02/2022 1:22 PM AKDT Station ID: [id number]
== END 2022-05-02 23:59 | disposition home or self-care (01) ==
LOC: DI.WOS 08:00
PROVIDERS: ATTEND Physician Assistant Surgical
DX: M17.11 Unilateral primary osteoarthritis, right knee (principal)

== ENCOUNTER 2022-09-22 11:27 | Emergency (ER) | payer MEDICARE, OTHER ==
[2022-09-22 12:15] LABS: BASOPHILS # (AUTO) 0.1 10^3/uL (0.0-0.1); BASOPHILS % (AUTO) 0.9 %; EOSINOPHILS # (AUTO) 0.1 10^3/uL (0.0-0.7); HCT - HEMATOCRIT 43.6 % (42.0-52.0); HGB - HEMOGLOBIN 14.1 g/dL (14.0-18.0); LYMPHOCYTES # (AUTO) 1.6 10^3/uL (1.5-3.5); LYMPHOCYTES % (AUTO) 22.4 %; MEAN CORPUSCULAR HEMOGLOBIN 31.1 pg (27.0-31.0); MEAN CORPUSCULAR HGB CONC 32.3 g/dL (32.0-36.0); MEAN PLATELET VOLUME 10.1 fL (7.4-11.4); MONOCYTES # (AUTO) 0.6 10^3/uL (0.0-1.0); MONOCYTES % (AUTO) 8.8 %; NEUTROPHILS # (AUTO) 4.5 10^3/uL (1.5-6.6); NEUTROPHILS % (AUTO) 65.5 %; PLT - PLATELET COUNT 262 10^3/uL (130-450); RED BLOOD COUNT 4.54 10^6/uL (4.70-6.10); RED CELL DISTRIBUTION WIDTH 12.9 % (12.0-15.0); WHITE BLOOD COUNT 6.9 x10^3/uL (4.8-10.8)
--- NOTE | 2022-09-22 12:33 | XRAY Report ---
PROCEDURE: Chest 1 View X-Ray INDICATIONS: dyspnea TECHNIQUE: One view of the chest was acquired. COMPARISON: 12/12/2021 FINDINGS: Surgical changes and devices: None. Lungs and pleura: Mild diffuse lung disease, slightly more prominent in the right infrahilar region. No pleural effusions. Mediastinum: Normal heart size. Bones and chest wall: No suspicious bony lesions. Overlying soft tissues appear unremarkable. IMPRESSION: Mild diffuse lung disease, more prominent in the right infrahilar region, possibly edema or infection /inflammation. Consider future imaging surveillance to assess for resolution. Reviewed by: Lyle Das MD on 09/22/2022 12:32 PM PDT Approved by: Lyle Das MD on 09/22/2022 12:32 PM PDT Station ID: [id number]
[2022-09-22] MEDS ORDERED: predniSONE 20 MG TABLET PO STA (12:46)
--- NOTE | 2022-09-22 12:54 | ED Physician Documentation ---
PD HPI DYSPNEA - Stated complaint Stated Complaint: SOA,RT LG PX - Chief complaint Chief Complaint: Resp - History obtained from History obtained from: Patient - Additional information Additional information: The patient comes to the emergency department complaining of shortness of breath on and off for the last week. He states that he has a history of reactive airway disease and his breathing has felt "tight". The patient denies any fevers or chills. No chest pain or nausea. He has no history of DVT. The patient does have some chronic right leg pain which he states is not different than usual. He states the sense of shortness of breath is a bit worse when he gets up to walk around. He is not currently feeling any shortness of breath sitting in the bed, and actually, has not really felt short of breath today. No other complaints at this time. PD PAST MEDICAL HISTORY - Past Medical History Past Medical History: Yes Cardiovascular: Hypertension, High cholesterol Respiratory: Sleep apnea Neuro: CVA, TIA Endocrine/Autoimmune: Other GI: Cholelithiasis : Benign prostate hypertrophy, Frequency HEENT: Chronic vision loss, Chronic hearing loss Psych: None Musculoskeletal: Osteoarthritis Derm: Other - Past Surgical History Past Surgical History: Yes General: Other - Present Medications Home Medications: Ambulatory Orders Medication Instructions Recorded Confirmed Atorvastatin [Lipitor] 80 mg PO QPM #30 tablet 04/17/16 09/22/22 Clopidogrel [Plavix] 75 mg PO DAILY 04/13/18 09/22/22 Aspirin [Aspirin EC] 81 mg PO DAILY 07/23/18 09/22/22 Lisinopril/Hydrochlorothiazide 1 tab PO DAILY 07/23/18 09/22/22 [Lisinopril-Hctz 10-12.5 mg Tab] Albuterol Sulf [Ventolin Hfa 1 - 2 puffs INH Q4HR PRN #1 inhaler 12/12/21 09/22/22 Inhaler] Albuterol Sulf [Ventolin Hfa 1 - 2 puffs INH Q4HR PRN #1 each 09/22/22 Inhaler] predniSONE [Deltasone] 60 mg PO DAILY 5 Days #15 tablet 09/22/22 - Allergies Allergies/Adverse Reactions: Allergies Allergy/AdvReac Type Severity Reaction Status Date / Time No Known Drug Allergies Allergy Verified 09/22/22 11:40 - Social History Does the pt smoke?: No Smoking Status: Never smoker Does the pt drink ETOH?: No Does the pt have substance abuse?: No - Immunizations Immunizations are current?: No Immunizations: TDAP >10years/unknown - POLST Patient has POLST: No PD ED PE NORMAL - Vitals Vital signs reviewed: Yes - General General: Alert and oriented X 3, No acute distress, Well developed/nourished - HEENT HEENT: Atraumatic, PERRL, EOMI, Moist mucous membranes - Neck Neck: Supple, no meningeal sign - Cardiac Cardiac: RRR, No murmur, Strong equal pulses - Respiratory Respiratory: No respiratory distress, Clear bilaterally - Abdomen Abdomen: Soft, Non tender, Non distended - Derm Derm: Normal color, Warm and dry, No rash - Extremities Extremities: No deformity, No tenderness to palpate, Normal ROM s pain, No edema, No calf tenderness / cord, Other (Lower extremity symmetrical) - Neuro Neuro: Alert and oriented X 3, Other (Grossly intact) - Psych Psych: Normal mood, Normal affect Results - Vitals Vitals: Oxygen O2 Source Room air - Labs Labs: Laboratory Tests 09/22/22 09/22/22 09/22/22 12:05 12:05 12:05 WBC 6.9 RBC 4.54 L Hgb 14.1 Hct 43.6 MCV 96.0 H MCH 31.1 H MCHC 32.3 RDW 12.9 Plt Count 262 MPV 10.1 Neut # (Auto) 4.5 Lymph # (Auto) 1.6 Teller # (Auto) 0.6 Eos # (Auto) 0.1 Baso # (Auto) 0.1 Absolute Nucleated RBC 0.00 Nucleated RBC % 0.0 D-Dimer 225.7 Sodium Potassium Chloride Carbon Dioxide Anion Gap BUN Creatinine Estimated GFR (MDRD) Glucose Calcium Total Bilirubin AST ALT Alkaline Phosphatase Troponin I High Sens B-Natriuretic Peptide 58 Total Protein Albumin Globulin Albumin/Globulin Ratio Lipase 09/22/22 09/22/22 12:32 12:32 WBC RBC Hgb Hct MCV MCH MCHC RDW Plt Count MPV Neut # (Auto) Lymph # (Auto) Teller # (Auto) Eos # (Auto) Baso # (Auto) Absolute Nucleated RBC Nucleated RBC % D-Dimer Sodium 139 Potassium 4.1 Chloride 105 Carbon Dioxide 28 Anion Gap 6.0 BUN 27 H Creatinine 1.2 Estimated GFR (MDRD) 58 L Glucose 121 H Calcium 8.9 Total Bilirubin 0.5 AST 26 ALT 21 Alkaline Phosphatase 68 Troponin I High Sens 9.5 B-Natriuretic Peptide Total Protein 6.1 L Albumin 3.5 Globulin 2.6 Albumin/Globulin Ratio 1.3 Lipase 51 - Rads (name of study) Chest x-ray Relevant Findings:: Final report received, See rad report (Mild diffuse lung disease) PD Medical Decision Making - ED course Complexity details: reviewed results, re-evaluated patient, considered differential, d/w patient ED course: The patient's lung exam was completely normal here and he really was not symptomatic at this time. He had 100% saturation on room air and I was not exactly clear what was causing his symptoms. He did have a history of reactive airway disease and this was certainly a possibility. He was worked up with chest x-ray, which showed some vague and likely more chronic findings, as well as laboratory studies, including CBC, ER abdominal panel, BNP, D-dimer, and troponin. All of these were ordered and reviewed by me, and all were found to be within normal limits/unremarkable. I discussed with the patient that he may benefit from using an inhaler when he is feeling short of breath. I prescribed this and a course of steroids for him. I have not found any serious cause of the patient's symptoms, and at this point in time, he is stable for discharge home. We have discussed the usual indications for return. Departure - Departure Disposition: 01 Home, Self Care Clinical Impression: Dyspnea Qualifiers: Dyspnea type: shortness of breath Qualified Code(s): R06.02 - Shortness of breath Condition: Stable Instructions: ED Reactive Airway Disease, ED Dyspnea Shortness of Breath Prescriptions: Albuterol Sulf [Ventolin Hfa Inhaler] 1 - 2 puffs INH Q4HR PRN #1 each PRN Reason: Shortness Of Air/Wheezing predniSONE [Deltasone] 60 mg PO DAILY 5 Days #15 tablet Comments: Your lungs are clear on examination and your oxygen levels 100%. Your breathing is comfortable and your symptoms seem to have resolved. Your x-ray shows some diffuse lung disease consistent with your history of lung issues. At this point in time, there is no evidence of a more serious condition going on. When you need to use your albuterol inhaler, please use the spacer if you cannot get a deep breath, so that you can get all of the medication over several breaths. You may take the steroid if needed if you are having difficulty breathing. If you develop fever or worsening cough productive of sputum, please get rechecked for repeat x-ray. Your prescriptions have been electronically transmitted to the [facility] pharmacy in [place] at your request. Discharge Date/Time: 09/22/22 13:11
[2022-09-22 12:59] VITALS: BP 148/81
[2022-09-22 13:19] LABS: ALBUMIN 3.5 g/dL (3.2-5.5); ALBUMIN/GLOBULIN RATIO 1.3 (1.0-2.2); BILIRUBIN,TOTAL 0.5 mg/dL (0.2-1.0); CALCIUM 8.9 mg/dL (8.5-10.3); CREATININE 1.2 mg/dL (0.6-1.2); POTASSIUM 4.1 mmol/L (3.5-5.0); TOTAL PROTEIN 6.1 g/dL (6.7-8.2)
== END 2022-09-22 13:11 | disposition home or self-care (01) ==
LOC: ED 11:27
DX: R06.02 Shortness of breath (principal); I10 Essential (primary) hypertension
CPT/HCPCS: 36415; 71045; 80053; 83690; 83880; 84484; 85025; 85379; 93005; 99284; J7512

== ENCOUNTER 2022-10-14 08:47 | Outpatient (CLI) | payer MEDICARE, OTHER ==
--- NOTE | 2022-10-14 11:03 | Ultrasound Report ---
PROCEDURE: Duplex Ext Veins Right INDICATIONS: CRAMP IN R LOWER LEG TECHNIQUE: Real-time imaging, as well as color and pulse Doppler interrogation, were performed of the lower extr emity deep veins from the inguinal ligament to the popliteal fossa. COMPARISON: None. FINDINGS: The deep veins are normally compressible, and free of intraluminal thrombus. Color and pu lse Doppler demonstrate normal phasic intraluminal flow. There is normal augmentation response to di stal compression maneuver. IMPRESSION: No DVT in the visualized lower extremity. Reviewed by: Nir Schwartz on 10/14/2022 11:01 AM PDT Approved by: Nir Schwartz on 10/14/2022 11:01 AM PDT Station ID: [id number]
== END 2022-10-14 08:48 | disposition home or self-care (01) ==
LOC: DI 08:47
PROVIDERS: ATTEND Internal Medicine
DX: R25.2 Cramp and spasm (principal)

== ENCOUNTER 2022-10-21 08:00 | Outpatient (CLI) | payer MEDICARE, OTHER ==
[2022-10-21 15:54] LABS: BASOPHILS # (AUTO) 0.1 10^3/uL (0.0-0.1); BASOPHILS % (AUTO) 0.8 %; EOSINOPHILS # (AUTO) 0.1 10^3/uL (0.0-0.7); EOSINOPHILS % (AUTO) 2.4 %; HCT - HEMATOCRIT 45.3 % (42.0-52.0); LYMPHOCYTES # (AUTO) 1.4 10^3/uL (1.5-3.5); LYMPHOCYTES % (AUTO) 24.3 %; MEAN CORPUSCULAR HEMOGLOBIN 31.4 pg (27.0-31.0); MEAN CORPUSCULAR HGB CONC 33.1 g/dL (32.0-36.0); MEAN PLATELET VOLUME 10.3 fL (7.4-11.4); MONOCYTES # (AUTO) 0.6 10^3/uL (0.0-1.0); MONOCYTES % (AUTO) 10.3 %; NEUTROPHILS # (AUTO) 3.7 10^3/uL (1.5-6.6); PLT - PLATELET COUNT 316 10^3/uL (130-450); RED BLOOD COUNT 4.77 10^6/uL (4.70-6.10); WHITE BLOOD COUNT 5.9 x10^3/uL (4.8-10.8)
[2022-10-21 16:23] LABS: ALBUMIN 4.1 g/dL (3.2-5.5); ALBUMIN/GLOBULIN RATIO 1.5 (1.0-2.2); ALKALINE PHOSPHATASE 80 IU/L (42-121); ALT ALANINE AMINOTRANSFERASE 20 IU/L (10-60); AST ASPARTATE AMINOTRANSFERASE 25 IU/L (10-42); BILIRUBIN,TOTAL 1.5 mg/dL (0.2-1.0); BUN - BLOOD UREA NITROGEN 22 mg/dL (6-20); CALCIUM 9.1 mg/dL (8.5-10.3); CARBON DIOXIDE - CO2 30 mmol/L (21-32); CHLORIDE 102 mmol/L (101-111); CHOL/HDL RATIO 2.9 (<5.0); CHOLESTEROL 219 mg/dL; CK- CREATINE KINASE 125 IU/L (22-269); CREATININE 1.1 mg/dL (0.6-1.2); GFR - MDRD 65 (>89); GLUCOSE 118 mg/dL (70-100); HDL CHOLESTEROL 75 mg/dL; LDL CHOLESTEROL,CALCULATED 134 mg/dL; LDL/HDL RATIO 1.8 (<3.6); MAGNESIUM 2.3 mg/dL (1.7-2.8); POTASSIUM 4.1 mmol/L (3.5-5.0); SODIUM 140 mmol/L (135-145); TOTAL PROTEIN 6.9 g/dL (6.7-8.2); TRIGLYCERIDES 51 mg/dL; VLDL CHOLESTEROL 10 mg/dL
[2022-10-21 21:44] LABS: ESTIMATED AVERAGE GLUCOSE 140 mg/dL (70-100); HEMOGLOBIN A1c% 6.5 % (4.27-6.07)
== END 2022-10-21 23:58 | disposition home or self-care (01) ==
LOC: LAB.R 08:00
PROVIDERS: ATTEND Internal Medicine
DX: Z00.00 Encounter for general adult medical examination without abnormal findings (principal); I63.9 Cerebral infarction, unspecified; I10 Essential (primary) hypertension; R25.2 Cramp and spasm; R73.01 Impaired fasting glucose; H91.90 Unspecified hearing loss, unspecified ear; M19.90 Unspecified osteoarthritis, unspecified site; M79.604 Pain in right leg; J45.909 Unspecified asthma, uncomplicated; D86.9 Sarcoidosis, unspecified; Z79.899 Other long term (current) drug therapy
CPT/HCPCS: 80053; 80061; 82550; 83036; 83721; 83735; 84443; 85025

== ENCOUNTER 2022-10-28 09:16 | Outpatient (CLI) | payer MEDICARE, OTHER ==
--- NOTE | 2022-10-28 16:56 | MRI Report ---
PROCEDURE: LUMBAR SPINE WO INDICATIONS: PAIN IN LEG TECHNIQUE: Noncontrast sagittal T1 spin echo and T2 fast echo, sagittal STIR, coronal T2, axial T1 and T2 fast s pin echo through the lumbar spine. COMPARISON: None. FINDINGS: Image quality: Excellent. Alignment and Curvature: No plain films are available for comparison. Thus, for numbering purposes, 5 lumbar type vertebral bodies will be presumed for the current report. This should be confirmed with plain film correlation prior to any lumbar spinal intervention. Mild diffuse rightward curvature of the mid/upper lumbar spine. Loss of normal lumbar lordosis. 4 mm of retrolisthesis of T12 on L1. 3 mm of retrolisthesis of L1 on L2 and L2 on L3. 2 mm of retrolisthesis of L3 on L4. Bone Marrow: Marrow is of normal overall signal. No acute vertebral body compression fractures. Mi ld reactive signal throughout the endplates of the lumbar and lower thoracic spine. Spinal Cord: Conus medullaris terminates at the L1-L2 disc space level. Visualized cord demonstrate s normal signal and size. Paraspinous Soft Tissues: No paravertebral masses. T12-L1: Moderate disc height loss and desiccation. Mild diffuse disc bulge. Mild facet and ligament flavum hypertrophy. Mild canal stenosis. Mild right foraminal stenosis. No left foraminal stenosis. L1-L2: Moderate disc height loss and desiccation. Mild diffuse disc bulge. Mild facet and ligament flavum hypertrophy. Mild canal stenosis. Moderate left and mild right foraminal stenosis. L2-L3: Moderate disc height loss and desiccation. Mild diffuse disc bulge. Mild facet and ligament flavum hypertrophy. Moderate epidural lipomatosis. Severe canal stenosis. Moderate bilateral foramin al stenosis. L3-L4: Moderate disc height loss and desiccation. Moderate diffuse disc bulge. Mild facet and ligam ent flavum hypertrophy. Moderate epidural lipomatosis. Severe canal stenosis. Moderate left and sever e right foraminal stenosis. Right L3 nerve root compression. L4-L5: Mild disc height loss. Moderate disc desiccation. Moderate diffuse disc bulge with superimpo sed right far lateral protrusion. Mild facet and ligament flavum hypertrophy. Moderate epidural lipom atosis. Severe canal stenosis. Severe bilateral foraminal stenosis. Bilateral L4 nerve root compressi on. L5-S1: Mild disc height loss and desiccation. Mild diffuse disc bulge. Mild bilateral facet hypertr ophy. Mild epidural lipomatosis. Mild canal stenosis. Moderate subarticular foraminal stenosis bilate rally. IMPRESSION: 1. Multilevel degenerative disc and facet disease, in addition to epidural lipomatosis and ligamentum flavum hypertrophy. 2. Multilevel canal stenoses, worst at L2-L3, L3-L4, and L4-L5, where there are severe canal stenoses . 3. Multilevel foraminal stenoses, worst at L3-L4 and L4-L5 where there is associated intraforaminal n erve root compression. Recommend correlation with clinical symptoms to ascertain relevance of these f indings. 4. Five lumbar type vertebral bodies were presumed for the purposes of the current report. Correlati on with plainfilms for numbering purposes is recommended prior to any lumbar spinal intervention. Reviewed by: Lorin Shipley MD on 10/28/2022 4:54 PM PDT Approved by: Lorin Shipley MD on 10/28/2022 4:54 PM PDT Station ID: [id number]
== END 2022-10-28 09:17 | disposition home or self-care (01) ==
LOC: DI 09:16
PROVIDERS: ATTEND Internal Medicine
DX: M51.36 Other intervertebral disc degeneration, lumbar region (principal); M48.061 Spinal stenosis, lumbar region without neurogenic claudication; M47.26 Other spondylosis with radiculopathy, lumbar region; M47.817 Spondylosis without myelopathy or radiculopathy, lumbosacral region; M51.37 Other intervertebral disc degeneration, lumbosacral region; M48.07 Spinal stenosis, lumbosacral region

== ENCOUNTER 2022-11-30 23:18 | Emergency (ER) | payer MEDICARE, OTHER ==
[2022-11-30 23:33] VITALS: BP 134/80
--- NOTE | 2022-12-01 00:09 | ED Physician Documentation ---
History of Present Illness - Stated complaint Stated Complaint: CANNOT HEAR - Chief complaint Chief Complaint: General - History obtained from History obtained from: Patient - Additonal information Additional information: Patient is a 77-year-old male with a history of prior strokes on Plavix and aspirin presenting for evaluation of difficulty with his hearing out of both ears. Patient states he noticed this suddenly this evening when he could not hear his television or his daughter. He drove himself to the emergency department. He states that he feels like there is a radio station in the left ear with "radio noise". He denies hitting his head or having a headache. He has been using [id number] earwax softening drops for the past few days. Review of Systems Constitutional: denies: Fever Ears: reports: Loss of hearing Cardiac: denies: Chest pain / pressure Respiratory: denies: Dyspnea GI: denies: Abdominal Pain Neurologic: denies: Headache, Head injury PD PAST MEDICAL HISTORY - Past Medical History Cardiovascular: Hypertension, High cholesterol Respiratory: Sleep apnea Neuro: CVA, TIA Endocrine/Autoimmune: Other GI: Cholelithiasis : Benign prostate hypertrophy, Frequency HEENT: Chronic vision loss, Chronic hearing loss Psych: None Musculoskeletal: Osteoarthritis Derm: Other - Past Surgical History Past Surgical History: Yes General: Other - Present Medications Home Medications: Ambulatory Orders Medication Instructions Recorded Confirmed Clopidogrel [Plavix] 75 mg PO DAILY 04/13/18 11/30/22 Aspirin [Aspirin EC] 81 mg PO DAILY 07/23/18 11/30/22 Lisinopril/Hydrochlorothiazide 1 tab PO DAILY 07/23/18 11/30/22 [Lisinopril-Hctz 10-12.5 mg Tab] Rosuvastatin Calcium [Crestor] 40 mg PO DAILY 11/30/22 11/30/22 - Allergies Allergies/Adverse Reactions: Allergies Allergy/AdvReac Type Severity Reaction Status Date / Time No Known Drug Allergies Allergy Verified 11/30/22 23:43 - Social History Does the pt smoke?: No Smoking Status: Never smoker Does the pt drink ETOH?: No Does the pt have substance abuse?: No - Immunizations Immunizations are current?: No Immunizations: TDAP >10years/unknown - POLST Patient has POLST: No PD ED PE NORMAL - General General: Alert and oriented X 3, No acute distress, Well developed/nourished - HEENT HEENT: Atraumatic, Other (Bilateral cerumen impaction) - Neck Neck: Supple, no meningeal sign - Cardiac Cardiac: RRR - Respiratory Respiratory: No respiratory distress - Neuro Neuro: Alert and oriented X 3, merchant tailor 2-12 intact, No motor deficit, Normal speech, Other (Normal gait) Results - Vitals Vitals: Vital Signs - 24 hr 11/30/22 23:30 Temperature 35.6 C L Heart Rate 73 Respiratory 19 Rate Blood Pressure 134/80 H O2 Saturation 98 Oxygen O2 Source Room air PD Medical Decision Making - ED course ED course: Patient is a 77-year-old male presenting for evaluation of loss of hearing. On exam he has significant bilateral cerumen impaction.Cerumen was removed with ear curette and patient reports significant improvement in his symptoms and can now hear again. He does have a history of strokes but does not have any focal deficits on exam.He is counseled on need for close follow-up with PCP if symptoms recur. He is advised on concerning symptoms to return for. Departure - Departure Disposition: 01 Home, Self Care Clinical Impression: Bilateral impacted cerumen Condition: Stable Instructions: ED Wax Ear Home Removal, ED Earwax Removal Comments: You have a significant amount of earwax in both ear canals that was impacting your hearing. We were able to clear out the right ear canal. There is still some wax present in the left ear canal but it does seem to be less and your hearing has significantly improved.Please continue with the fjdh-[id number] eardrops in your ears - Especially left ear. I would recommend close follow-up with your primary care To see if you need further help with earwax removal. Return to the emergency department with any concerns. Discharge Date/Time: 12/01/22 00:13
== END 2022-12-01 00:13 | disposition home or self-care (01) ==
LOC: ED 23:18
DX: H61.23 Impacted cerumen, bilateral (principal)
CPT/HCPCS: 99281

== ENCOUNTER 2023-08-04 07:51 | Emergency (ER) | payer MEDICARE, OTHER ==
--- NOTE | 2023-08-04 08:02 | ED Physician Documentation ---
PD HPI LOWER EXT INJURY - Stated complaint Stated Complaint: RT FOOT PX,TINGLY - Chief complaint Chief Complaint: Ext Problem - History obtained from History obtained from: Patient - History of Present Illness PD HPI LOW EXT INJURY LOCATION: Right, Foot, Toe Type of injury: No: Fall, Twist, Puncture wound Where injury occurred: Home Timing - onset: How many days ago (2-3) Timing - duration: Days (2-3) Timing - details: Gradual onset, Still present Associated symptoms: Swelling, Discolored (redness), Other (markedly tender to even light touch.). No: Weakness, Numbness Similar symptoms before: Has not had sx before Review of Systems Constitutional: denies: Fever, Chills Skin: denies: Lesions, Abrasion (s), Laceration (s) Neurologic: denies: Focal weakness, Numbness PD PAST MEDICAL HISTORY - Past Medical History Cardiovascular: Hypertension, High cholesterol Respiratory: Sleep apnea Neuro: CVA, TIA Endocrine/Autoimmune: Other GI: Cholelithiasis : Benign prostate hypertrophy, Frequency HEENT: Chronic vision loss, Chronic hearing loss Psych: None Musculoskeletal: Osteoarthritis Derm: Other - Past Surgical History Past Surgical History: Yes General: Other - Present Medications Home Medications: Ambulatory Orders Medication Instructions Recorded Confirmed Clopidogrel [Plavix] 75 mg PO DAILY 04/13/18 08/04/23 Aspirin [Aspirin EC] 81 mg PO DAILY 07/23/18 08/04/23 Lisinopril/Hydrochlorothiazide 1 tab PO DAILY 07/23/18 08/04/23 [Lisinopril-Hctz 10-12.5 mg Tab] Rosuvastatin Calcium [Crestor] 40 mg PO DAILY 11/30/22 08/04/23 Gabapentin [Neurontin] 100 mg PO BID 08/04/23 08/04/23 HYDROcod/ACETAM 5/325 [[place] 5/325] 1 ea PO Q6H PRN #18 tablet 08/04/23 dexAMETHasone [Decadron] 4 mg PO DAILY #5 tablet 08/04/23 - Allergies Allergies/Adverse Reactions: Allergies Allergy/AdvReac Type Severity Reaction Status Date / Time No Known Drug Allergies Allergy Verified 08/04/23 07:54 - Social History Does the pt smoke?: No Smoking Status: Never smoker Does the pt drink ETOH?: No Does the pt have substance abuse?: No - Immunizations Immunizations are current?: Yes Immunizations: TDAP >10years/unknown - POLST Patient has POLST: No PD ED PE NORMAL - Vitals Vital signs reviewed: Yes - General General: Alert and oriented X 3, No acute distress, Well developed/nourished - Derm Derm: Warm and dry - Extremities Extremities: Other (dorsum right foot laterally and more concentrated at base little toe is redness, tenderness, warmth. No skin sores nor breakdown. ) - Neuro Neuro: Alert and oriented X 3, No motor deficit, Normal speech Results - Vitals Vitals: Vital Signs - 24 hr 08/04/23 07:54 Temperature 36.6 C Heart Rate 78 Respiratory 18 Rate Blood Pressure 136/81 H O2 Saturation 98 Oxygen O2 Source Room air PD Medical Decision Making - ED course Complexity details: considered differential (The degree of tenderness along with some redness swelling and warmth is consistent with gout or an inflammatory process. No skin lesions seen and there is no redness extending beyond that area so at this point seems less likely infectious. He does take aspirin and Plavix so no NSAIDs at this point), d/w patient Departure - Departure Disposition: 01 Home, Self Care Clinical Impression: Acute foot pain, Inflammation of foot joint Condition: Stable Record reviewed to determine appropriate education?: Yes Prescriptions: dexAMETHasone [Decadron] 4 mg PO DAILY #5 tablet HYDROcod/ACETAM 5/325 [[place] 5/325] 1 ea PO Q6H PRN #18 tablet PRN Reason: Pain Comments: This looks to be an inflammatory process. Consideration could be local venom effect such as a insect bite. However more likely would be some in inflammatory process such as tendinitis or gout. I do not see any skin lesions to suggest a introduction for infection. At this point I treated with anti-inflammatory and pain medicine. I wrote a prescription for Decadron steroid anti-inflammatory. This can be used in combination with your aspirin and clopidogrel blood thinners safely. Add Tylenol 500 to 650 mg 4 times daily regularly for the next several days or so. Add hydrocodone/acetaminophen if needed for worse pain. I would anticipate this feeling less painful with the pain medicine and generally improving over the next couple of days and resolved over 3 to 5 days. I sent a prescription to your preferred pharmacy, [facility]. Recheck if not improving in the above timeframe and return if worse, in particular if it extends beyond the area of just the foot or you develop any skin sores fevers or other infectious characteristics. I am prescribing a short course of narcotic pain medication for you. These are potentially dangerous and addictive medications that should be used carefully. These medications may constipate you. Take an tjqt-yao-vllyace stool softener such as docusate twice daily with plenty of water while taking these medications. If you go 24 hours without a bowel movement, take [id number] MiraLAX, per package instructions. Do not drink or drive while taking these medications. If you received narcotic or sedating medications while in the emergency department do not drive for 24 hours. Store this medication in a safe, secure place and out of reach of children. It is a violation of federal law to give or sell this medication to another person or to use in a manner other than prescribed. The ED will not refill narcotic prescriptions, including prescriptions lost or stolen. You can dispose of unwanted medications at the [facility]'s office or at several pharmacies such as [facility]. Forms: PCP List
[2023-08-04 08:08] VITALS: O2SAT 98
[2023-08-04] MEDS ORDERED: ACETAMINOPHEN 500 MG TABLET PO STA (08:20)
[2023-08-04] MEDS ORDERED: dexAMETHasone 4 MG TABLET PO STA (08:20)
[2023-08-04 09:08] VITALS: BP 122/64
== END 2023-08-04 09:06 | disposition home or self-care (01) ==
LOC: ED 07:51
DX: M19.071 Primary osteoarthritis, right ankle and foot (principal)
CPT/HCPCS: 99282; 99283; A9270; J8540